=== PATIENT | male | born 1940 | race Caucasian/White ===

== ENCOUNTER 2021-11-03 12:11 | Outpatient (CLI) | payer MEDICARE, MEDICAID, SELFPAY ==
--- NOTE | 2021-11-03 12:28 | CT_ITS ---
WS: [id number] CT ABDOMEN PELVIS TECHNIQUE: Contrast-enhanced CT of the abdomen and pelvis with coronal and sagittal reformatted image s. CLINICAL INFORMATION: MALIGNANT MELANOMA OF BACK DLP: 1118.[address] scans at [facility] use at least one of these dose optimization techniques: automated e xposure control; mA and/or kV adjustment per patient size (includes targeted exams where dose is matc hed to clinical indication); or iterative reconstruction. FINDINGS: Slight atelectasis in the lung bases. Moderate esophageal hiatal hernia. Normal liver parenchymal enh ancement. Normal portal vein and splenic vein. Fatty atrophy of the pancreas. Adrenal glands are norm al. Normal renal parenchymal enhancement. No hydronephrosis. Both ureters are decompressed. Normal caliber abdominal aorta. Aortic calcification. No periaortic lymphadenopathy. Sigmoid divertic ulosis. No evidence of acute diverticulitis. Normal appendix in the RIGHT lower quadrant. No pelvic o r inguinal lymphadenopathy. Small fat-containing inguinal hernias bilaterally. Enlarged prostate with calcification measuring 3.8 x 4.8 cm. Correlation PSA. Disc osteophyte complex L3-L4 with impingement RIGHT subarticular recess and moderat e RIGHT L3-L4 foraminal narrowing. Mild central canal stenosis. Lumbar curve convex LEFT. CT/CT abdomen pelvis w con* [id number] IMPRESSION: 1. No evidence of metastatic disease in the abdomen or pelvis. 2. Moderate esophageal hiatal hernia. 3. No adenopathy in the abdomen or pelvis. No inguinal lymphadenopathy. 4. Sigmoid diverticulosis. No evidence of acute diverticulitis. 5. Enlarged prostate. Recommend correlation PSA.
[2021-11-03] MEDS: iohexol 300 mg/mL 100 mL Btl IV (13:48)
[2021-11-03 13:50] LABS: Blood Urea Nitrogen 12 mg/dL (8-23)
== END 2021-11-03 12:12 | disposition home or self-care (01) ==
LOC: RAD 12:12
PROVIDERS: Visit Provider Nurse Practitioner Family
DX: C43.59 Malignant melanoma of other part of trunk (principal); J98.11 Atelectasis; K44.9 Diaphragmatic hernia without obstruction or gangrene; I70.0 Atherosclerosis of aorta; K57.32 Diverticulitis of large intestine without perforation or abscess without bleeding; N40.0 Benign prostatic hyperplasia without lower urinary tract symptoms; M25.78 Osteophyte, vertebrae
CPT/HCPCS: 74177; 82565; 84520

== ENCOUNTER → 2021-11-10 11:23 | Outpatient (BNVA) | payer MEDICARE, MEDICAID, SELFPAY | PROVIDERS: Visit Provider Nurse Practitioner Family | DX: M79.605 Pain in left leg (principal); M17.12 Unilateral primary osteoarthritis, left knee | CPT/HCPCS: 73590 ==

== ENCOUNTER 2022-04-24 07:26 | Oncology outpatient (recurring) (ONCR) | payer MEDICARE, MEDICAID, SELFPAY | END 2022-05-02 23:59 | disposition home or self-care (01) | PROVIDERS: Visit Provider Internal Medicine Hematology & Oncology | DX: C43.59 Malignant melanoma of other part of trunk (principal); C77.3 Secondary and unspecified malignant neoplasm of axilla and upper limb lymph nodes; Z95.828 Presence of other vascular implants and grafts | CPT/HCPCS: 96523; 99204 ==

== ENCOUNTER 2022-05-29 15:29 | Oncology outpatient (recurring) (ONCR) | payer MEDICARE, MEDICAID, SELFPAY ==
[2022-05-07 10:37] VITALS: BP 164/95; PULSE 76; RESP 16; TEMP 36.5; O2SAT 93
[2022-05-07 10:58] LABS: Basophils % 0.6 %; Eosinophils # 0.1 10^3/uL (0.0-0.8); Eosinophils % 1.4 %; Hematocrit 44.8 % (42.0-52.0); Hemoglobin 14.7 g/dL (11.7-16.6); Lymphocytes # 1.3 10^3/uL (0.8-4.8); Lymphocytes % 19.8 %; Mean Corpuscular HGB Conc 32.8 g/dL (30.0-36.0); Mean Corpuscular Hemoglobin 29.9 pg (28.0-34.0); Mean Corpuscular Volume 91.2 fl (80-94); Mean Platelet Volume 10.3 fL (7.4-10.4); Monocytes # 0.6 10^3/uL (0.2-0.9); Monocytes % 9.5 %; Neutrophils # 4.38 10^3/uL (1.8-7.7); Neutrophils % 68.2 %; Nucleated Red Blood Cells % 0 %; Platelet Count 222 10^3/cmm (130-400); Red Blood Count 4.91 10^6/uL (4.1-5.3); Red Cell Distribution Width 12.8 % (12.1-15.1); White Blood Count 6.4 10^3/uL (4.0-10.0)
[2022-05-07 11:28] LABS: Alanine Aminotransferase 10 U/L (0-41); Albumin Level 3.9 g/dL (3.5-5.2); Alkaline Phosphatase 76 U/L (40-130); Anion Gap 10.6 (5-19); Aspartate Amino Transferase 16 U/L (0-40); Blood Urea Nitrogen 15 mg/dL (8-23); Calcium 9.3 mg/dL (8.5-10.5); Carbon Dioxide 30 mmol/L (22-29); Chloride 100 mmol/L (98-107); Globulin 3.3 g/dL (1.3-4.6); Glucose 119 mg/dL (65-115); Osmolality Calculated 286 mOsm/kg (285-295); Potassium 3.6 mmol/L (3.5-5.1); Sodium 137 mmol/L (136-145); Total Bilirubin 0.4 mg/dL (0.15-1.2); Total Protein 7.2 g/dL (6.6-8.7)
[2022-05-07 11:29] LABS: Thyroid Stimulating Hormone 1.17 uIU/mL (0.27-4.20)
[2022-05-07] MEDS: sodium chloride 0.9% 250 ML 75 ML IV (11:56)
[2022-05-07] MEDS: nivolumab 240 MG in sodium chloride 0.9% 250 ML 548 MG IV (11:58)
[2022-05-07 12:40] VITALS: BP 153/93; PULSE 71; RESP 16; TEMP 36.6; O2SAT 95
[2022-05-14 08:30] LABS: Basophils # 0.1 10^3/uL (0.0-0.1); Basophils % 0.8 %; Eosinophils # 0.2 10^3/uL (0.0-0.8); Eosinophils % 2.5 %; Hematocrit 44.5 % (42.0-52.0); Hemoglobin 14.8 g/dL (11.7-16.6); Lymphocytes # 1.3 10^3/uL (0.8-4.8); Lymphocytes % 19.3 %; Mean Corpuscular HGB Conc 33.3 g/dL (30.0-36.0); Mean Corpuscular Hemoglobin 30.5 pg (28.0-34.0); Mean Corpuscular Volume 91.6 fl (80-94); Mean Platelet Volume 10.4 fL (7.4-10.4); Monocytes # 0.6 10^3/uL (0.2-0.9); Monocytes % 9.4 %; Neutrophils # 4.38 10^3/uL (1.8-7.7); Neutrophils % 67.8 %; Nucleated Red Blood Cells % 0 %; Platelet Count 203 10^3/cmm (130-400); Red Blood Count 4.86 10^6/uL (4.1-5.3); Red Cell Distribution Width 12.8 % (12.1-15.1); White Blood Count 6.5 10^3/uL (4.0-10.0)
[2022-05-14 09:23] LABS: Alanine Aminotransferase 9 U/L (0-41); Albumin Level 4.3 g/dL (3.5-5.2); Alkaline Phosphatase 75 U/L (40-130); Anion Gap 13.3 (5-19); Aspartate Amino Transferase 17 U/L (0-40); Blood Urea Nitrogen 13 mg/dL (8-23); Calcium 9.3 mg/dL (8.5-10.5); Carbon Dioxide 29 mmol/L (22-29); Chloride 98 mmol/L (98-107); Globulin 2.7 g/dL (1.3-4.6); Glucose 137 mg/dL (65-115); Osmolality Calculated 286 mOsm/kg (285-295); Potassium 3.3 mmol/L (3.5-5.1); Sodium 137 mmol/L (136-145); Thyroid Stimulating Hormone 2.44 uIU/mL (0.27-4.20); Total Bilirubin 0.5 mg/dL (0.15-1.2)
[2022-05-14 11:12] LABS: Magnesium 1.9 mg/dL (1.7-2.3)
[2022-05-21 08:31] LABS: Basophils # 0.1 10^3/uL (0.0-0.1); Basophils % 1.1 %; Eosinophils # 0.2 10^3/uL (0.0-0.8); Eosinophils % 3.4 %; Hematocrit 43.6 % (42.0-52.0); Hemoglobin 14.3 g/dL (11.7-16.6); Lymphocytes # 1.3 10^3/uL (0.8-4.8); Mean Corpuscular HGB Conc 32.8 g/dL (30.0-36.0); Mean Corpuscular Hemoglobin 30.2 pg (28.0-34.0); Mean Platelet Volume 10.5 fL (7.4-10.4); Monocytes # 0.5 10^3/uL (0.2-0.9); Monocytes % 8.5 %; Neutrophils # 3.51 10^3/uL (1.8-7.7); Neutrophils % 63.8 %; Nucleated Red Blood Cells % 0 %; Platelet Count 191 10^3/cmm (130-400); Red Blood Count 4.74 10^6/uL (4.1-5.3); Red Cell Distribution Width 12.8 % (12.1-15.1); White Blood Count 5.5 10^3/uL (4.0-10.0)
[2022-05-21 09:12] LABS: Alanine Aminotransferase 9 U/L (0-41); Albumin Level 3.8 g/dL (3.5-5.2); Alkaline Phosphatase 76 U/L (40-130); Anion Gap 12.5 (5-19); Aspartate Amino Transferase 18 U/L (0-40); Blood Urea Nitrogen 14 mg/dL (8-23); Calcium 8.9 mg/dL (8.5-10.5); Carbon Dioxide 30 mmol/L (22-29); Chloride 105 mmol/L (98-107); Glucose 153 mg/dL (65-115); Osmolality Calculated 302 mOsm/kg (285-295); Potassium 3.5 mmol/L (3.5-5.1); Sodium 144 mmol/L (136-145); Thyroid Stimulating Hormone 1.96 uIU/mL (0.27-4.20); Total Bilirubin 0.4 mg/dL (0.15-1.2); Total Protein 6.8 g/dL (6.6-8.7)
[2022-05-21] MEDS: nivolumab 240 MG in sodium chloride 0.9% 250 ML 548 MG IV (10:26)
[2022-05-21 11:12] VITALS: BP 159/88; PULSE 70; RESP 16; TEMP 36.3; O2SAT 93
--- NOTE | 2022-05-29 17:11 | N.ONRAD NP_ITS ---
Radiation Oncology New Patient Visit Patient: Randell Paul MR#: [id number] : 1940> Age: 81> Sex: Male> Dictated by: Dr. Jim Bose Date of Service: 05/29/2022 Referring Physician(s) : Andrei Hurley MD Diagnosis: Skin, back, melanoma, stage [id number] Radiotherapy to date: Summary > No prior radiation therapy. Chief Complaint / History of Present Illness: Mr. Paul is an 81-year-old man who was noted to have an enlarging lesion on his back in mid October 2021. An excisional biopsy was performed 10/27/2021 and the tissue returned showing malignant melanoma with peripheral and deep margin involvement and ulceration at least 5 mm in depth. The patient's PET/CT did not show activity at the primary site but did indicate left axillary lymph node involvement. No distant metastases seen. A CT of the head was performed instead of an MR because of the presence of a pacemaker. The CT did not show metastatic disease. Mr. Paul was referred to Dr. Bullard who performed a wide local excision of the primary site as well as an axillary dissection on 02/06/2022.. He had no residual disease at the primary site but had 1 of 19 lymph nodes involved with melanoma. The lymph node measured 5 cm but no extranodal extension was observed, either macroscopically or microscopically. Shortly after the wide local excision and axillary dissection, Dr. Bullard placed a port. Mr. Paul did not return to Dr. Bundy to start systemic therapy. He was then referred to Dr. Hurley here in [place]. He has been started on nivolumab every 2 weeks for 7 months. Because of the size of the axillary metastasis, it has been requested that he be evaluated for postoperative radiation. Current Medications: Prochlorperazine and lorazepam Allergies: NKA Medical History: No history of collagen vascular disease. No previous radiation therapy. He has a pacemaker. It was placed in 2013. I do not know the details behind its placement. The patient emphasized that he would not have it removed or removed. Surgical History: See HPI. Also has a history of an inguinal hernia repair and placement of pacemaker. Family History: He is adopted without knowledge of family history. Social History: Never smoked. Never used alcoholic beverages. He has a sister who helps him assess medical recommendations. Current Complaints / Review of Systems: . No head neck, pulmonary, gastrointestinal, or cardiovascular complaints Vital Signs: Performed on 05/29/2022 3:38 PM BMI - 29.188 kg/m2 (high), Height - 65 in, Weight - 175.4 lbs, Temperature - 97.5 f, Pulse - 89 /min, Respiration - 18 /min, O2 Sat - 96 %, Pain - 0, Fatigue - 0 and BP - 156/ 99 mm(hg)(high). Physical Exam: Alert, oriented, no acute distress. No cervical, supraclavicular, axillary, or inguinal lymphadenopathy. The site of his axillary dissection is well-healed. No surface skin lesions or subcutaneous lesions to suggest recurrence. On his back, in the upper lumbar area he has a horizontal scar in the area where he had the resection and wide local excision performed. There are no surface satellite lesions. No subcutaneous masses to suggest local recurrence. Examination of the anterior chest wall reveals a port over the right upper chest and a pacemaker over the left upper chest near the axilla. Lungs are clear to percussion. On auscultation no rales, rhonchi, or wheezes. Heart regular rhythm. No murmur or gallop noted. Abdomen - no distention. No organomegaly or mass or tenderness. Musculoskeletal-normal gait. No bone tenderness. 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 The patient has started adjuvant nivolumab. Based on the size of the axillary metastasis (greater than 4 cm), adjuvant radiation should be considered. There is not much data available on using external beam radiation concomitantly with nivolumab. The [facility] has an article that has been accepted for publication and is available in abstract form that is related to the use of nivolumab concomitantly with external beam radiation of the head neck. The radiation dose is 70 [place] and either weekly or every 3 weekly cisplatin is utilized. According to the abstract, no unusual side effects or complications develop from using the nivolumab, external beam radiation, and cisplatin concomitantly. I discussed that with Dr. Hurley. To give further safety, he advised stopping the nivolumab during radiation. Skipping 1 course would give us time for a 4-week course of radiation. I discussed all of the above issues with Mr. Paul. I discussed a 4-week course of radiation, but told him that Dr. Marrero may prefer a different treatment regimen. I discussed the logistics of treatment and that transportation will need to be arranged. I discussed side effects and complications, particularly the risk of lymphedema, arm pain, and arm weakness. I then discussed the fact that his pacemaker is directly adjacent to the area that will need radiation. I told him there is a considerable chance that the pacemaker will need to be moved. He may have interpreted that as meaning the pacemaker would be removed permanently. He definitely refuses that, and I am not sure he will agree to have it moved. I do not have imaging that shows the placement of the pacemaker. I suggested to the staff that when he returns for nivolumab next week that we could consider getting a chest x-ray. They will discuss that with Dr. Marrero. Plan: Discussed the pacemaker issue with Dr. Hurley and await Dr. Marrero's input when he returns from vacation. Signed by: 05/29/2022 5:11:08 PM <<Signature on File>> Time spent with patient: CPT Code: CPT Code:
== END 2022-06-02 23:59 | disposition home or self-care (01) ==
PROVIDERS: Nurse Practitioner; PCP Nurse Practitioner Family; Visit Provider Internal Medicine Hematology & Oncology
DX: C43.59 Malignant melanoma of other part of trunk (principal); C77.3 Secondary and unspecified malignant neoplasm of axilla and upper limb lymph nodes; Z95.0 Presence of cardiac pacemaker; Z79.899 Other long term (current) drug therapy
CPT/HCPCS: 36591; 80053; 83735; 84443; 85025; 96413; 99205; 99214; J7050; J9299

== ENCOUNTER 2022-06-19 08:00 | Oncology outpatient (recurring) (ONCR) | payer MEDICARE, MEDICAID, SELFPAY ==
[2022-06-05 10:36] LABS: Basophils # 0.1 10^3/uL (0.0-0.1); Basophils % 0.9 %; Eosinophils # 0.2 10^3/uL (0.0-0.8); Eosinophils % 2.7 %; Hematocrit 44.2 % (42.0-52.0); Hemoglobin 14.4 g/dL (11.7-16.6); Lymphocytes # 1.3 10^3/uL (0.8-4.8); Lymphocytes % 22.7 %; Mean Corpuscular HGB Conc 32.6 g/dL (30.0-36.0); Mean Corpuscular Hemoglobin 29.8 pg (28.0-34.0); Mean Corpuscular Volume 91.5 fl (80-94); Mean Platelet Volume 11.1 fL (7.4-10.4); Monocytes # 0.6 10^3/uL (0.2-0.9); Monocytes % 10.8 %; Neutrophils # 3.66 10^3/uL (1.8-7.7); Neutrophils % 62.6 %; Nucleated Red Blood Cells % 0 %; Platelet Count 193 10^3/cmm (130-400); Red Blood Count 4.83 10^6/uL (4.1-5.3); Red Cell Distribution Width 12.8 % (12.1-15.1); White Blood Count 5.9 10^3/uL (4.0-10.0)
[2022-06-05 10:53] LABS: Alanine Aminotransferase 8 U/L (0-41); Albumin Level 3.9 g/dL (3.5-5.2); Alkaline Phosphatase 73 U/L (40-130); Anion Gap 12.8 (5-19); Aspartate Amino Transferase 15 U/L (0-40); Blood Urea Nitrogen 16 mg/dL (8-23); Calcium 9.4 mg/dL (8.5-10.5); Carbon Dioxide 28 mmol/L (22-29); Chloride 105 mmol/L (98-107); Globulin 3.2 g/dL (1.3-4.6); Glucose 109 mg/dL (65-115); Osmolality Calculated 296 mOsm/kg (285-295); Potassium 3.8 mmol/L (3.5-5.1); Sodium 142 mmol/L (136-145); Total Bilirubin 0.4 mg/dL (0.15-1.2); Total Protein 7.1 g/dL (6.6-8.7)
[2022-06-05] MEDS: nivolumab 240 MG in sodium chloride 0.9% 250 ML 548 MG IV (12:09)
[2022-06-05 12:41] VITALS: BP 153/94; PULSE 72; RESP 16; TEMP 36.1; O2SAT 94
[2022-06-19 08:10] VITALS: BMI 29.1
[2022-06-19 08:25] LABS: Basophils # 0.1 10^3/uL (0.0-0.1); Basophils % 0.8 %; Eosinophils # 0.3 10^3/uL (0.0-0.8); Eosinophils % 4.1 %; Hematocrit 44.5 % (42.0-52.0); Hemoglobin 14.5 g/dL (11.7-16.6); Lymphocytes # 1.5 10^3/uL (0.8-4.8); Lymphocytes % 23.2 %; Mean Corpuscular HGB Conc 32.6 g/dL (30.0-36.0); Mean Corpuscular Volume 91.9 fl (80-94); Mean Platelet Volume 10.6 fL (7.4-10.4); Monocytes # 0.7 10^3/uL (0.2-0.9); Monocytes % 10.3 %; Neutrophils # 3.91 10^3/uL (1.8-7.7); Neutrophils % 61.3 %; Nucleated Red Blood Cells % 0 %; Platelet Count 185 10^3/cmm (130-400); Red Blood Count 4.84 10^6/uL (4.1-5.3); Red Cell Distribution Width 12.8 % (12.1-15.1); White Blood Count 6.4 10^3/uL (4.0-10.0)
[2022-06-19 08:48] LABS: Alanine Aminotransferase 9 U/L (0-41); Albumin Level 4.1 g/dL (3.5-5.2); Alkaline Phosphatase 72 U/L (40-130); Anion Gap 12.8 (5-19); Aspartate Amino Transferase 16 U/L (0-40); Blood Urea Nitrogen 20 mg/dL (8-23); Calcium 8.8 mg/dL (8.5-10.5); Carbon Dioxide 29 mmol/L (22-29); Chloride 105 mmol/L (98-107); Globulin 2.8 g/dL (1.3-4.6); Glucose 144 mg/dL (65-115); Osmolality Calculated 301 mOsm/kg (285-295); Potassium 3.8 mmol/L (3.5-5.1); Sodium 143 mmol/L (136-145); Thyroid Stimulating Hormone 1.19 uIU/mL (0.27-4.20); Total Bilirubin 0.2 mg/dL (0.15-1.2); Total Protein 6.9 g/dL (6.6-8.7)
[2022-06-19] MEDS: sodium chloride 0.9% 250 ML 75 ML IV (10:02)
[2022-06-19] MEDS: nivolumab 240 MG in sodium chloride 0.9% 250 ML 548 MG IV (10:08)
[2022-06-19 11:02] VITALS: BP 149/85; PULSE 70; RESP 18; TEMP 36.6; O2SAT 96
== END 2022-07-03 23:59 | disposition home or self-care (01) ==
PROVIDERS: PCP Nurse Practitioner Family; Visit Provider Internal Medicine Hematology & Oncology
DX: Z51.12 Encounter for antineoplastic immunotherapy (principal); C43.59 Malignant melanoma of other part of trunk; C77.1 Secondary and unspecified malignant neoplasm of intrathoracic lymph nodes; Z79.899 Other long term (current) drug therapy
CPT/HCPCS: 80053; 84443; 85025; 96413; 99214; 99215; J7050; J9299

== ENCOUNTER 2022-07-23 10:30 | Oncology outpatient (recurring) (ONCR) | payer MEDICARE, MEDICAID, SELFPAY ==
[2022-07-09] MEDS: nivolumab 240 MG in sodium chloride 0.9% 250 ML 548 MG IV (11:28)
[2022-07-09 12:10] VITALS: BP 145/87; PULSE 70; RESP 16; TEMP 36.2; O2SAT 96
== END 2022-07-31 23:59 | disposition home or self-care (01) ==
PROVIDERS: PCP Nurse Practitioner Family; Visit Provider Internal Medicine Hematology & Oncology
DX: C43.59 Malignant melanoma of other part of trunk
CPT/HCPCS: 80053; 84443; 85025; 99214; J7050; J9299

== ENCOUNTER 2022-08-20 09:30 | Oncology outpatient (recurring) (ONCR) | payer MEDICARE, MEDICAID, SELFPAY ==
[2022-08-06 09:23] LABS: Basophils # 0.1 10^3/uL (0.0-0.1); Basophils % 0.8 %; Eosinophils # 0.2 10^3/uL (0.0-0.8); Eosinophils % 3.4 %; Hematocrit 45.4 % (42.0-52.0); Hemoglobin 14.7 g/dL (11.7-16.6); Lymphocytes # 1.3 10^3/uL (0.8-4.8); Mean Corpuscular HGB Conc 32.4 g/dL (30.0-36.0); Mean Corpuscular Hemoglobin 29.3 pg (28.0-34.0); Mean Corpuscular Volume 90.6 fl (80-94); Mean Platelet Volume 10.3 fL (7.4-10.4); Monocytes # 0.5 10^3/uL (0.2-0.9); Monocytes % 8.6 %; Neutrophils # 4.05 10^3/uL (1.8-7.7); Neutrophils % 65.9 %; Nucleated Red Blood Cells % 0 %; Platelet Count 217 10^3/cmm (130-400); Red Blood Count 5.01 10^6/uL (4.1-5.3); Red Cell Distribution Width 12.2 % (12.1-15.1); White Blood Count 6.2 10^3/uL (4.0-10.0)
[2022-08-06 09:50] LABS: Alanine Aminotransferase 8 U/L (0-41); Albumin Level 3.8 g/dL (3.5-5.2); Alkaline Phosphatase 72 U/L (40-130); Anion Gap 13.9 (5-19); Aspartate Amino Transferase 16 U/L (0-40); Blood Urea Nitrogen 18 mg/dL (8-23); Calcium 9.4 mg/dL (8.5-10.5); Carbon Dioxide 29 mmol/L (22-29); Chloride 104 mmol/L (98-107); Globulin 3.1 g/dL (1.3-4.6); Glucose 132 mg/dL (65-115); Osmolality Calculated 300 mOsm/kg (285-295); Potassium 3.9 mmol/L (3.5-5.1); Sodium 143 mmol/L (136-145); Thyroid Stimulating Hormone 0.08 uIU/mL (0.27-4.20); Total Bilirubin 0.5 mg/dL (0.15-1.2); Total Protein 6.9 g/dL (6.6-8.7)
[2022-08-06] MEDS: nivolumab 240 MG in sodium chloride 0.9% 250 ML 548 MG IV (11:29)
[2022-08-06 12:15] VITALS: BP 145/84; PULSE 71; RESP 16; TEMP 36.6; O2SAT 93
[2022-08-20 09:28] LABS: Basophils # 0.1 10^3/uL (0.0-0.1); Basophils % 1.1 %; Eosinophils # 0.2 10^3/uL (0.0-0.8); Eosinophils % 4.9 %; Hematocrit 45.7 % (42.0-52.0); Hemoglobin 14.8 g/dL (11.7-16.6); Lymphocytes # 1.1 10^3/uL (0.8-4.8); Lymphocytes % 22.4 %; Mean Corpuscular HGB Conc 32.4 g/dL (30.0-36.0); Mean Corpuscular Hemoglobin 29.3 pg (28.0-34.0); Mean Corpuscular Volume 90.5 fl (80-94); Monocytes # 0.5 10^3/uL (0.2-0.9); Monocytes % 11.2 %; Neutrophils # 2.86 10^3/uL (1.8-7.7); Neutrophils % 60.2 %; Nucleated Red Blood Cells % 0 %; Platelet Count 206 10^3/cmm (130-400); Red Blood Count 5.05 10^6/uL (4.1-5.3); Red Cell Distribution Width 12.6 % (12.1-15.1); White Blood Count 4.7 10^3/uL (4.0-10.0)
[2022-08-20 09:53] LABS: Alanine Aminotransferase 9 U/L (0-41); Albumin Level 3.8 g/dL (3.5-5.2); Alkaline Phosphatase 61 U/L (40-130); Anion Gap 10.7 (5-19); Aspartate Amino Transferase 20 U/L (0-40); Blood Urea Nitrogen 13 mg/dL (8-23); Calcium 8.9 mg/dL (8.5-10.5); Carbon Dioxide 30 mmol/L (22-29); Chloride 104 mmol/L (98-107); Globulin 3.1 g/dL (1.3-4.6); Glucose 117 mg/dL (65-115); Osmolality Calculated 293 mOsm/kg (285-295); Potassium 3.7 mmol/L (3.5-5.1); Sodium 141 mmol/L (136-145); Thyroid Stimulating Hormone 5.77 uIU/mL (0.27-4.20); Total Bilirubin 0.6 mg/dL (0.15-1.2); Total Protein 6.9 g/dL (6.6-8.7)
[2022-08-20] MEDS: nivolumab 240 MG in sodium chloride 0.9% 250 ML 548 MG IV (11:30)
[2022-08-20 11:50] LABS: Thyroid Stimulating Hormone 3.35 uIU/mL (0.27-4.20)
[2022-08-20 12:16] VITALS: BP 159/90; PULSE 74; RESP 16; TEMP 36.1; O2SAT 97
== END 2022-08-31 23:59 | disposition home or self-care (01) ==
PROVIDERS: PCP Nurse Practitioner Family; Visit Provider Internal Medicine Hematology & Oncology
DX: Z51.12 Encounter for antineoplastic immunotherapy (principal); C43.59 Malignant melanoma of other part of trunk; C77.3 Secondary and unspecified malignant neoplasm of axilla and upper limb lymph nodes; Z79.899 Other long term (current) drug therapy; Z95.0 Presence of cardiac pacemaker
CPT/HCPCS: 80053; 84443; 85025; 96413; 99214; J7050; J9299

== ENCOUNTER 2022-09-03 08:48 | Oncology outpatient (recurring) (ONCR) | payer MEDICARE, MEDICAID, SELFPAY ==
[2022-09-03 08:57] VITALS: BP 173/92; PULSE 77; RESP 16; TEMP 36; O2SAT 93
[2022-09-03 09:20] LABS: Basophils # 0.1 10^3/uL (0.0-0.1); Basophils % 1.1 %; Eosinophils # 0.2 10^3/uL (0.0-0.8); Eosinophils % 3.6 %; Hemoglobin 14.8 g/dL (11.7-16.6); Lymphocytes # 1.1 10^3/uL (0.8-4.8); Lymphocytes % 21.7 %; Mean Corpuscular HGB Conc 32.2 g/dL (30.0-36.0); Mean Corpuscular Hemoglobin 29.5 pg (28.0-34.0); Mean Corpuscular Volume 91.8 fl (80-94); Mean Platelet Volume 10.9 fL (7.4-10.4); Monocytes # 0.5 10^3/uL (0.2-0.9); Monocytes % 8.9 %; Neutrophils # 3.38 10^3/uL (1.8-7.7); Neutrophils % 64.3 %; Nucleated Red Blood Cells % 0 %; Platelet Count 164 10^3/cmm (130-400); Red Blood Count 5.01 10^6/uL (4.1-5.3); Red Cell Distribution Width 13.1 % (12.1-15.1); White Blood Count 5.3 10^3/uL (4.0-10.0)
[2022-09-03 09:45] LABS: Alanine Aminotransferase 9 U/L (0-41); Alkaline Phosphatase 68 U/L (40-130); Anion Gap 11.5 (5-19); Aspartate Amino Transferase 19 U/L (0-40); Blood Urea Nitrogen 15 mg/dL (8-23); Calcium 8.5 mg/dL (8.5-10.5); Carbon Dioxide 29 mmol/L (22-29); Chloride 104 mmol/L (98-107); Globulin 2.8 g/dL (1.3-4.6); Glucose 115 mg/dL (65-115); Osmolality Calculated 294 mOsm/kg (285-295); Potassium 3.5 mmol/L (3.5-5.1); Sodium 141 mmol/L (136-145); Thyroid Stimulating Hormone 19.64 uIU/mL (0.27-4.20); Total Bilirubin 0.4 mg/dL (0.15-1.2); Total Protein 6.8 g/dL (6.6-8.7)
[2022-09-03] MEDS: nivolumab 240 MG in sodium chloride 0.9% 250 ML 548 MG IV (11:57)
[2022-09-03 12:34] VITALS: BP 169/99; PULSE 77; RESP 16; TEMP 36; O2SAT 96
== END 2022-09-30 23:59 | disposition home or self-care (01) ==
PROVIDERS: PCP Nurse Practitioner Family; Visit Provider Internal Medicine Hematology & Oncology
DX: Z51.12 Encounter for antineoplastic immunotherapy (principal); C43.59 Malignant melanoma of other part of trunk; C77.3 Secondary and unspecified malignant neoplasm of axilla and upper limb lymph nodes; Z79.899 Other long term (current) drug therapy; Z95.0 Presence of cardiac pacemaker; E03.9 Hypothyroidism, unspecified
CPT/HCPCS: 80053; 84443; 85025; 96413; 99214; J7050; J9299

== ENCOUNTER → 2022-09-04 10:34 | Outpatient (BNVA) | payer MEDICARE, MEDICAID, SELFPAY | PROVIDERS: PCP Nurse Practitioner Family; Visit Provider Internal Medicine Cardiovascular Disease | DX: Z95.0 Presence of cardiac pacemaker (principal); I48.91 Unspecified atrial fibrillation; I10 Essential (primary) hypertension; C43.9 Malignant melanoma of skin, unspecified; E87.6 Hypokalemia | CPT/HCPCS: 99204 ==

== ENCOUNTER 2022-10-04 08:49 | Oncology outpatient (recurring) (ONCR) | payer MEDICARE, MEDICAID, SELFPAY ==
[2022-10-04 09:00] VITALS: BP 150/90; PULSE 70; RESP 18; TEMP 37.1; O2SAT 95
[2022-10-04 09:17] LABS: Basophils # 0.1 10^3/uL (0.0-0.1); Eosinophils # 0.3 10^3/uL (0.0-0.8); Eosinophils % 4.1 %; Hematocrit 44.2 % (42.0-52.0); Hemoglobin 14.3 g/dL (11.7-16.6); Lymphocytes # 1.2 10^3/uL (0.8-4.8); Lymphocytes % 20.4 %; Mean Corpuscular HGB Conc 32.4 g/dL (30.0-36.0); Mean Corpuscular Hemoglobin 30.1 pg (28.0-34.0); Mean Corpuscular Volume 93.1 fl (80-94); Mean Platelet Volume 10.8 fL (7.4-10.4); Monocytes # 0.6 10^3/uL (0.2-0.9); Monocytes % 9.2 %; Neutrophils # 3.96 10^3/uL (1.8-7.7); Neutrophils % 65.1 %; Nucleated Red Blood Cells % 0 %; Platelet Count 190 10^3/cmm (130-400); Red Blood Count 4.75 10^6/uL (4.1-5.3); Red Cell Distribution Width 13.2 % (12.1-15.1); White Blood Count 6.1 10^3/uL (4.0-10.0)
[2022-10-04 09:55] LABS: Alanine Aminotransferase 10 U/L (0-41); Albumin Level 4.3 g/dL (3.5-5.2); Alkaline Phosphatase 68 U/L (40-130); Anion Gap 10.9 (5-19); Aspartate Amino Transferase 19 U/L (0-40); Blood Urea Nitrogen 20 mg/dL (8-23); Calcium 8.8 mg/dL (8.5-10.5); Carbon Dioxide 29 mmol/L (22-29); Chloride 107 mmol/L (98-107); Globulin 2.7 g/dL (1.3-4.6); Glucose 105 mg/dL (65-115); Osmolality Calculated 299 mOsm/kg (285-295); Potassium 3.9 mmol/L (3.5-5.1); Sodium 143 mmol/L (136-145); Thyroid Stimulating Hormone 23.16 uIU/mL (0.27-4.20); Total Bilirubin 0.4 mg/dL (0.15-1.2)
[2022-10-04 10:11] LABS: Immunoglobulin IGG 1124 mg/dL (700-1600)
[2022-10-04] MEDS: sodium chloride 0.9% 250 ML 75 ML IV (11:30)
[2022-10-04 12:06] LABS: Hepatitis A Antibody IgM Non-Reactive (Nonreactive); Hepatitis B Core AB, Total Non-Reactive (Nonreactive); Hepatitis B Surface AB 3.5 (11.5-1000); Hepatitis B Surface Antigen Non-Reactive (Nonreactive); Hepatitis C Virus Antibody Non-Reactive (Nonreactive)
[2022-10-04] MEDS: nivolumab 480 MG in sodium chloride 0.9% 250 ML 596 MG IV (12:07)
[2022-10-04 12:54] VITALS: BP 144/81; PULSE 75; RESP 18; TEMP 36.4; O2SAT 95
== END 2022-10-04 23:59 | disposition home or self-care (01) ==
PROVIDERS: PCP Nurse Practitioner Family; Visit Provider Internal Medicine Hematology & Oncology
DX: Z51.12 Encounter for antineoplastic immunotherapy (principal); C43.59 Malignant melanoma of other part of trunk; C77.3 Secondary and unspecified malignant neoplasm of axilla and upper limb lymph nodes; E03.9 Hypothyroidism, unspecified; Z79.899 Other long term (current) drug therapy; Z95.0 Presence of cardiac pacemaker
CPT/HCPCS: 80053; 82784; 84443; 85025; 86705; 86706; 86709; 86803; 87340; 96375; 96413; 99214; J1642; J7050; J9299

== ENCOUNTER → 2022-10-18 13:21 | Outpatient (BNVA) | payer MEDICARE, MEDICAID, SELFPAY | PROVIDERS: PCP Nurse Practitioner Family; Visit Provider Internal Medicine Cardiovascular Disease | DX: I48.91 Unspecified atrial fibrillation (principal); I10 Essential (primary) hypertension; Z95.0 Presence of cardiac pacemaker; E03.9 Hypothyroidism, unspecified | CPT/HCPCS: 99214 ==

== ENCOUNTER 2022-11-05 08:33 | Oncology outpatient (recurring) (ONCR) | payer MEDICARE, MEDICAID, SELFPAY ==
[2022-11-05 09:03] VITALS: BP 162/93; PULSE 72; RESP 18; TEMP 36.6; O2SAT 90
[2022-11-05 09:14] LABS: Basophils % 0.6 %; Eosinophils # 0.4 10^3/uL (0.0-0.8); Eosinophils % 6.6 %; Hematocrit 41.4 % (42.0-52.0); Hemoglobin 13.2 g/dL (11.7-16.6); Lymphocytes # 1.4 10^3/uL (0.8-4.8); Lymphocytes % 22.7 %; Mean Corpuscular HGB Conc 31.9 g/dL (30.0-36.0); Mean Corpuscular Hemoglobin 30.3 pg (28.0-34.0); Mean Corpuscular Volume 95.2 fl (80-94); Mean Platelet Volume 10.8 fL (7.4-10.4); Monocytes # 0.5 10^3/uL (0.2-0.9); Monocytes % 8.7 %; Neutrophils # 3.78 10^3/uL (1.8-7.7); Neutrophils % 61.2 %; Nucleated Red Blood Cells % 0 %; Platelet Count 160 10^3/cmm (130-400); Red Blood Count 4.35 10^6/uL (4.1-5.3); Red Cell Distribution Width 13.2 % (12.1-15.1); White Blood Count 6.2 10^3/uL (4.0-10.0)
[2022-11-05 09:50] LABS: Alanine Aminotransferase 8 U/L (0-41); Albumin Level 4.1 g/dL (3.5-5.2); Alkaline Phosphatase 68 U/L (40-130); Anion Gap 11.8 (5-19); Aspartate Amino Transferase 18 U/L (0-40); Blood Urea Nitrogen 19 mg/dL (8-23); Calcium 8.4 mg/dL (8.5-10.5); Carbon Dioxide 30 mmol/L (22-29); Chloride 102 mmol/L (98-107); Globulin 2.5 g/dL (1.3-4.6); Glucose 124 mg/dL (65-115); Osmolality Calculated 294 mOsm/kg (285-295); Potassium 3.8 mmol/L (3.5-5.1); Sodium 140 mmol/L (136-145); Thyroid Stimulating Hormone 21.71 uIU/mL (0.27-4.20); Total Bilirubin 0.5 mg/dL (0.15-1.2); Total Protein 6.6 g/dL (6.6-8.7)
[2022-11-05] MEDS: nivolumab 480 MG in sodium chloride 0.9% 250 ML 596 MG IV (11:15)
[2022-11-05 12:02] VITALS: BP 136/87; PULSE 63; RESP 16; TEMP 36; O2SAT 99
== END 2022-11-05 23:59 | disposition home or self-care (01) ==
PROVIDERS: Nurse Practitioner Family; PCP Nurse Practitioner Family; Visit Provider Internal Medicine Hematology & Oncology
DX: Z51.12 Encounter for antineoplastic immunotherapy (principal); C43.59 Malignant melanoma of other part of trunk; C77.3 Secondary and unspecified malignant neoplasm of axilla and upper limb lymph nodes; E03.2 Hypothyroidism due to medicaments and other exogenous substances; Z79.899 Other long term (current) drug therapy; Z95.0 Presence of cardiac pacemaker; T45.1X5A Adverse effect of antineoplastic and immunosuppressive drugs, initial encounter
CPT/HCPCS: 80053; 84443; 85025; 96375; 96413; 99214; J1642; J7050; J9299

== ENCOUNTER 2022-12-03 08:24 | Oncology outpatient (recurring) (ONCR) | payer MEDICARE, MEDICAID, SELFPAY ==
[2022-12-03 08:42] VITALS: BP 163/79; PULSE 62; RESP 18; TEMP 36.6; O2SAT 93
[2022-12-03 08:53] LABS: Basophils # 0.1 10^3/uL (0.0-0.1); Basophils % 1.1 %; Eosinophils # 0.6 10^3/uL (0.0-0.8); Eosinophils % 9.8 %; Hematocrit 42.5 % (42.0-52.0); Hemoglobin 13.6 g/dL (11.7-16.6); Lymphocytes # 1.6 10^3/uL (0.8-4.8); Lymphocytes % 25.8 %; Mean Corpuscular Hemoglobin 30.8 pg (28.0-34.0); Mean Corpuscular Volume 96.2 fl (80-94); Mean Platelet Volume 10.8 fL (7.4-10.4); Monocytes # 0.4 10^3/uL (0.2-0.9); Monocytes % 6.7 %; Neutrophils # 3.51 10^3/uL (1.8-7.7); Neutrophils % 56.3 %; Nucleated Red Blood Cells % 0 %; Platelet Count 170 10^3/cmm (130-400); Red Blood Count 4.42 10^6/uL (4.1-5.3); Red Cell Distribution Width 13.4 % (12.1-15.1); White Blood Count 6.2 10^3/uL (4.0-10.0)
[2022-12-03 09:20] LABS: Alanine Aminotransferase 13 U/L (0-41); Albumin Level 4.3 g/dL (3.5-5.2); Alkaline Phosphatase 68 U/L (40-130); Anion Gap 9.3 (5-19); Aspartate Amino Transferase 26 U/L (0-40); Blood Urea Nitrogen 15 mg/dL (8-23); Calcium 9.6 mg/dL (8.5-10.5); Carbon Dioxide 30 mmol/L (22-29); Chloride 105 mmol/L (98-107); Globulin 2.7 g/dL (1.3-4.6); Glucose 103 mg/dL (65-115); Osmolality Calculated 291 mOsm/kg (285-295); Potassium 4.3 mmol/L (3.5-5.1); Sodium 140 mmol/L (136-145); Thyroid Stimulating Hormone 58.22 uIU/mL (0.27-4.20); Total Bilirubin 0.3 mg/dL (0.15-1.2)
[2022-12-03] MEDS: nivolumab 480 MG in sodium chloride 0.9% 250 ML 596 MG IV (10:47)
[2022-12-03 11:36] VITALS: BP 155/85; PULSE 63; RESP 18; TEMP 36.4; O2SAT 95
== END 2022-12-03 23:59 | disposition home or self-care (01) ==
PROVIDERS: PCP Nurse Practitioner Family; Visit Provider Internal Medicine Hematology & Oncology
DX: Z51.12 Encounter for antineoplastic immunotherapy (principal); C43.59 Malignant melanoma of other part of trunk; C77.3 Secondary and unspecified malignant neoplasm of axilla and upper limb lymph nodes; E03.9 Hypothyroidism, unspecified; Z79.899 Other long term (current) drug therapy; Z95.0 Presence of cardiac pacemaker
CPT/HCPCS: 80053; 84443; 85025; 96413; 99214; J1642; J7050; J9299

== ENCOUNTER 2022-12-31 09:49 | Oncology outpatient (recurring) (ONCR) | payer MEDICARE, MEDICAID, SELFPAY ==
[2022-12-31 09:49] VITALS: BMI 28.3
[2022-12-31 09:50] VITALS: BP 157/75; PULSE 69; RESP 18; TEMP 36.4; O2SAT 97
[2022-12-31 10:09] LABS: Basophils % 0.7 %; Eosinophils # 0.4 10^3/uL (0.0-0.8); Eosinophils % 7.3 %; Lymphocytes # 1.3 10^3/uL (0.8-4.8); Lymphocytes % 22.9 %; Mean Corpuscular HGB Conc 33.3 g/dL (30.0-36.0); Mean Corpuscular Hemoglobin 32.5 pg (28.0-34.0); Mean Corpuscular Volume 97.5 fl (80-94); Mean Platelet Volume 10.7 fL (7.4-10.4); Monocytes # 0.5 10^3/uL (0.2-0.9); Monocytes % 8.7 %; Neutrophils # 3.38 10^3/uL (1.8-7.7); Neutrophils % 59.9 %; Nucleated Red Blood Cells % 0 %; Platelet Count 193 10^3/cmm (130-400); Red Cell Distribution Width 13.3 % (12.1-15.1); White Blood Count 5.6 10^3/uL (4.0-10.0)
[2022-12-31 10:42] LABS: Alanine Aminotransferase 11 U/L (0-41); Albumin Level 4.2 g/dL (3.5-5.2); Alkaline Phosphatase 74 U/L (40-130); Aspartate Amino Transferase 21 U/L (0-40); Blood Urea Nitrogen 21 mg/dL (8-23); Calcium 9.4 mg/dL (8.5-10.5); Carbon Dioxide 29 mmol/L (22-29); Chloride 108 mmol/L (98-107); Globulin 2.6 g/dL (1.3-4.6); Glucose 124 mg/dL (65-115); Osmolality Calculated 306 mOsm/kg (285-295); Sodium 146 mmol/L (136-145); Thyroid Stimulating Hormone 15.79 uIU/mL (0.27-4.20); Total Bilirubin 0.4 mg/dL (0.15-1.2); Total Protein 6.8 g/dL (6.6-8.7)
[2022-12-31] MEDS: sodium chloride 0.9% 250 ML 75 ML IV (12:18)
[2022-12-31] MEDS: nivolumab 480 MG in sodium chloride 0.9% 250 ML 596 MG IV (12:57)
[2022-12-31 13:32] VITALS: BP 159/87; PULSE 77; RESP 18; TEMP 36.1; O2SAT 98
== END 2022-12-31 23:59 | disposition home or self-care (01) ==
PROVIDERS: Nurse Practitioner Family; PCP Nurse Practitioner Family; Visit Provider Internal Medicine Hematology & Oncology
DX: Z51.12 Encounter for antineoplastic immunotherapy (principal); C43.59 Malignant melanoma of other part of trunk; C77.3 Secondary and unspecified malignant neoplasm of axilla and upper limb lymph nodes; E03.9 Hypothyroidism, unspecified; Z79.899 Other long term (current) drug therapy; Z95.0 Presence of cardiac pacemaker; F41.9 Anxiety disorder, unspecified; F32.9 Major depressive disorder, single episode, unspecified
CPT/HCPCS: 80053; 84443; 85025; 96413; 99214; J1642; J7050; J9299

== ENCOUNTER → 2023-01-15 13:55 | Outpatient (BNVA) | payer MEDICARE, MEDICAID, SELFPAY | PROVIDERS: PCP Nurse Practitioner Family; Visit Provider Internal Medicine Cardiovascular Disease | DX: Z95.0 Presence of cardiac pacemaker (principal); I48.91 Unspecified atrial fibrillation; E03.9 Hypothyroidism, unspecified | CPT/HCPCS: 99214 ==

== ENCOUNTER 2023-01-16 10:34 | Outpatient (CLI) | payer MEDICARE, MEDICAID, SELFPAY ==
[2023-01-16 11:24] LABS: Basophils % 0.6 %; Eosinophils # 0.3 10^3/uL (0.0-0.8); Eosinophils % 4.1 %; Hematocrit 41.3 % (42.0-52.0); Hemoglobin 13.6 g/dL (11.7-16.6); Lymphocytes # 1.2 10^3/uL (0.8-4.8); Lymphocytes % 17.1 %; Mean Corpuscular HGB Conc 32.9 g/dL (30.0-36.0); Mean Corpuscular Hemoglobin 32.1 pg (28.0-34.0); Mean Corpuscular Volume 97.4 fl (80-94); Mean Platelet Volume 10.5 fL (7.4-10.4); Monocytes # 0.6 10^3/uL (0.2-0.9); Monocytes % 8.6 %; Neutrophils # 4.78 10^3/uL (1.8-7.7); Neutrophils % 69.2 %; Nucleated Red Blood Cells % 0 %; Platelet Count 165 10^3/cmm (130-400); Red Blood Count 4.24 10^6/uL (4.1-5.3); Red Cell Distribution Width 13.2 % (12.1-15.1); White Blood Count 6.9 10^3/uL (4.0-10.0)
[2023-01-16 11:35] LABS: INR 0.99 (0.83-1.21); Prothrombin Time (Patient) 13.4 Seconds (12.0-15.1)
[2023-01-16 11:50] LABS: Anion Gap 12.1 (5-19); Blood Urea Nitrogen 14 mg/dL (8-23); Calcium 8.7 mg/dL (8.5-10.5); Carbon Dioxide 30 mmol/L (22-29); Chloride 106 mmol/L (98-107); Glucose 113 mg/dL (65-115); NT Pro B Type Natriuretic Pept 294 pg/mL (0-450); Osmolality Calculated 299 mOsm/kg (285-295); Potassium 4.1 mmol/L (3.5-5.1); Sodium 144 mmol/L (136-145)
== END 2023-01-16 10:35 | disposition home or self-care (01) ==
PROVIDERS: PCP Nurse Practitioner Family; Visit Provider Internal Medicine Cardiovascular Disease
DX: Z45.010 Encounter for checking and testing of cardiac pacemaker pulse generator [battery] (principal)
CPT/HCPCS: 36415; 80048; 83880; 85025; 85610; 86850; 86900

== ENCOUNTER 2023-01-21 14:22 | Observation (INO) | payer MEDICARE, MEDICAID, SELFPAY ==
[2023-01-21 11:41] VITALS: BP 165/87; PULSE 68; RESP 16; TEMP 37.1; BMI 28.4
--- NOTE | 2023-01-21 12:12 | W.PM.OPSUD ---
Surgery/Procedure H&P Update DATE OF PROCEDURE: January 21, 2023 DATE H&P PERFORMED: 01/15/23 H&P UPDATE INFORMATION: I have reviewed H&P completed within last 30 days, I have examined patient prior to procedure and No changes to prior documentation PREOP DIAGNOSIS: PPM SRIDEVI PRIMARY INDICATION FOR PROCEDURE: SRIDEVI PLANNED PROCEDURE: Operation Date: 01/21/23 12:00 Proposed Procedures p Generator Change Out [id number](Not Applicable) - Duyen Omalley MD PATIENT REASSESSED PRIOR TO SEDATION, WITH NO CHANGE NOTED: Yes PHYSICAL EXAM: alert, oriented x 3, clear to auscultation bilaterally and regular rate & rhythm AIRWAY EVAL/ANESTHESIA PLAN: normal airway, see other exam findings, ASA III, Monitored Anesthesia, Local Anesthesia, Risks, benefits & alternatives of sedation and/or procedure discussed and Patient agrees to continue as planned ADDITIONAL INFORMATION: The risk of bleeding, hematoma, vascular injury, , infection, and other concomitant complications were explained in detail. The patient understood this well and consented to proceed.
--- NOTE | 2023-01-21 13:49 | PM.OP ---
Operative Report Date of procedure: January 21, 2023 Pre-op diagnosis: Preop Diagnosis PPM SRIDEVI Procedure: PROCEDURE: PACEMAKER REVISION PREOPERATIVE DIAGNOSIS: Pacemaker elective replacement indication. POSTOPERATIVE DIAGNOSIS: Pacemaker elective replacement indication. ESTIMATED BLOOD LOSS: Around 5 milliliters. COMPLICATIONS: None. BRIEF HISTORY: The patient is 82-year-old white male who had a permanent pacemaker implantation for symptomatic bradycardia/intermittent atrial flutter/fibrillation. The patient was found to have elective replacement indication, during routine office followup evaluation. For further management of patient's condition for the symptomatic bradycardia, the patient required a pacemaker revision. Patient required a dual-chamber pacemaker for symptom relief and the need for AV synchrony The procedure was explained to the patient in detail with the risks and benefits. The risks of bleeding, hematoma, vascular injury, infection and other concomitant complications were explained in detail, which the patient understood well and consented to proceed. PROCEDURES PERFORMED: 1. Explantation of the old pacemaker generator. 2. Implantation of the new generator. The patient brought to the Cardiac Moto Mix Operator. The left side of the neck and the subclavian area were cleaned and draped in a sterile fashion. 1% Xylocaine was used for local anesthetic agent. A 2 inch long incision was made just below the previous pacemaker scar. By sharp and blunt dissection, the pacemaker pocket was accessed. The old generator was delivered from the pocket. The generator was detached from the lead. The new Medtronic generator was attached to the lead. The pacemaker pocket was copiously irrigated with vancomycin solution. Complete hemostasis was achieved. The lead was positioned behind the generator and the generator was attached to the pectoralis fascia by suturing with 0 Surgilon. Sponge counts were confirmed. The pacemaker pocket was closed in layers. Skin was approximated using 4-0 Vicryl. EXPLANTED DEVICE: Pacemaker Generator: Brand: Dara ROMERO Model number: PM 2210. Serial number: [id number]. Date of implant: 11/12/2013 IMPLANTED DEVICES: Ventricular Lead: Date of implantation: 11/12/2013 Model number: [id number] TC Serial number: [id number] Make: [employer]. Atrial lead Date of implantation: 1940 Model number: [id number] Serial number: [id number] Make: [employer]. Implanted Generator: Date of implantation : 01/21/2023 Brand: Madiha Walker Model number: W1 DR 01 Serial number: [id number] Make: [employer] Stimulation Threshold: The ventricular sensing was not obtained because of the pacemaker dependency. Ventricular lead impedance was 475 ohms and the pacing threshold was 1.0 volts at 0.4 milliseconds. The atrial sensing was 1.4 millivolts. Atrial lead impedance was 380 ohms and the pacing threshold was 0.5 volts at 0.4 milliseconds. The pacemaker was set for DDD mode with an upper rate of 130 and a lower rate of 70. A pressure dressing was applied over the pacemaker site. The patient was transferred back to medical floor in stable condition. Sponge counts were correct.
[2023-01-21] MEDS: sodium chloride 0.9% 1,000 ML 75 ML IV (15:14)
[2023-01-21 17:00] VITALS: BP 162/82; PULSE 69; RESP 18; TEMP 36.6; O2SAT 93
[2023-01-21] MEDS: BuSPIRONE 10 mg Tablet 5 MG PO (17:32)
[2023-01-21] MEDS: ceFAZolin 2,000 MG in sodium chloride 0.9% (plus) 50 ML 100 MG IV (20:09)
[2023-01-21 22:29] VITALS: BP 154/72; PULSE 69; RESP 18; TEMP 36.6; O2SAT 90
[2023-01-22 00:38] VITALS: BP 131/75; PULSE 69; RESP 19; TEMP 37.3; O2SAT 91
[2023-01-22] MEDS: sodium chloride 0.9% 1,000 ML 75 ML IV (03:02)
[2023-01-22] MEDS: ceFAZolin 2,000 MG in sodium chloride 0.9% (plus) 50 ML 100 MG IV ×2 (04:20→11:10)
[2023-01-22 05:08] VITALS: BP 172/95; PULSE 69; RESP 22; TEMP 36.8; O2SAT 90
[2023-01-22 06:00] VITALS: PULSE 73
--- NOTE | 2023-01-22 06:00 | ECG_ITS ---
[facility] Test Date: 2023-01-22 Pat Name: Randell Paul Department: Room: 252 Gender: Male Oral Hygienist: : 1940 Requested By: Duyen Omalley Order Number: [id number] [place] MD: Duyen Omalley M.D. Measurements Intervals [place] Rate: 70 P: 194 [place]: 176 QRS: -78 QRSD: 182 T: 105 QT: 470 QTc: 507 Interpretive Statements ELECTRONIC ATRIAL PACEMAKER ELECTRONIC VENTRICULAR PACEMAKER ABNORMAL RHYTHM ECG No previous ECG available for comparison Electronically Signed On 01-23-2023 20:12:06 CDT by Duyen Omalley M.D. [email or web address] [email or web address]/store/[id number]
--- NOTE | 2023-01-22 07:07 | PC.NURSE ---
Pacemaker check performed this AM. Report in chart
[2023-01-22 09:10] VITALS: BP 164/83; PULSE 70; RESP 18; TEMP 36.8; O2SAT 92
[2023-01-22 09:33] VITALS: BP 164/83
[2023-01-22] MEDS: BuSPIRONE 10 mg Tablet 5 MG PO (09:33)
[2023-01-22] MEDS: losartan 50 mg Tablet PO (09:33)
[2023-01-22] MEDS: levothyroxine 100 mcg Tablet PO (09:34)
[2023-01-22] MEDS: amlodipine 5 mg Tablet PO (09:34)
--- NOTE | 2023-01-22 09:55 | PC.CHAP ---
Pastoral Care Encounter/Spiritual Assessment Type of Contact [] Declined chain forming machine operator visit [] Patient/Family/Request visit [] Outpatient visit [] Follow-up visit [] Physician referral [] Code/Alert [x] Routine visit [] Staff referral [] Actively dying [] Patient sleeping [] Family support [] [] Out of room [] Palliative care [] [] Receiving care in room [] Pre-surgical visit [] Trauma [] Long length of stay [] ICU visit [] Other: Relational/Emotional Strength [x] Patient feels connected with others/family/visitors/staff [] Distress [] Loneliness/isolation [] Abandonment Spirituality of Patient [x] Person of Cheryl [] Attends Synagogue of their Cheryl [x] Believes in Prayer [] Reads Bible or Taoism materials [] There are Spiritual issues to be addressed Covered Button Maker Interventions [x] Prayer [x] Active listening [] Non-anxious presence [x] Spiritual/emotional support [] Crisis/trauma care [] Spiritual counseling [] Bereavement support [] Provided bereavement packet [] Provided Bible/devotional materials [] Provided toy/stuffed animal, coloring book to patient or family member [] Provided Communion [] Anointing/[place] [] Salvation [x] Completed spiritual assessment [] Other: Impact on Illness or Injury [] Angry [] Fearful [] Anxious [] Often cries [] Exhaustion [] Unable to work [] Unable to attend uatsdin [] Unable to walk/stand [] Unable to read [] Unable to drive [] Unable to eat/drink [] Unable to sleep [] Unable to be with family [] Patient intubated [] Other: Summary Time spent with patient 5 min
[2023-01-22 12:07] VITALS: BP 164/83
== END 2023-01-22 12:08 | disposition home or self-care (01) ==
LOC: MEDSURG 14:22
PROVIDERS: Admitting Provider Internal Medicine Cardiovascular Disease; PCP Nurse Practitioner Family; Visit Provider Internal Medicine Cardiovascular Disease
DX: Z45.010 Encounter for checking and testing of cardiac pacemaker pulse generator [battery] (principal); I48.20 Chronic atrial fibrillation, unspecified; I10 Essential (primary) hypertension; E03.9 Hypothyroidism, unspecified; Z79.899 Other long term (current) drug therapy
CPT/HCPCS: 33228; 36415; 93005; 96361; 96365; 97165; 99152; 99153; A4216; C1769; C1786; G0378; J0690; J2250; J3010; J3370; J7030; J7050

== ENCOUNTER 2023-02-06 08:19 | Oncology outpatient (recurring) (ONCR) | payer MEDICARE, MEDICAID, SELFPAY ==
[2023-02-06 08:42] LABS: Basophils # 0.1 10^3/uL (0.0-0.1); Basophils % 0.8 %; Eosinophils # 0.4 10^3/uL (0.0-0.8); Eosinophils % 5.5 %; Lymphocytes # 1.4 10^3/uL (0.8-4.8); Lymphocytes % 21.8 %; Mean Corpuscular HGB Conc 32.8 g/dL (30-55); Mean Corpuscular Hemoglobin 31.4 pg (27-33); Mean Corpuscular Volume 95.9 fl (82-101); Mean Platelet Volume 9.9 fL (7.4-10.4); Monocytes # 0.7 10^3/uL (0.2-0.9); Monocytes % 10.8 %; Neutrophils # 3.89 10^3/uL (1.8-7.7); Neutrophils % 60.9 %; Nucleated Red Blood Cells % 0 %; Platelet Count 256 10^3/cmm (157-399); Red Blood Count 4.17 10^6/uL (3.85-5.65); Red Cell Distribution Width 12.3 % (12.1-15.1); White Blood Count 6.38 10^3/uL (3.29-11.43)
[2023-02-06 09:08] LABS: Alanine Aminotransferase 8 U/L (0-41); Albumin Level 4.2 g/dL (3.5-5.2); Alkaline Phosphatase 67 U/L (40-130); Anion Gap 10.9 (5-19); Aspartate Amino Transferase 19 U/L (0-40); Blood Urea Nitrogen 17 mg/dL (8-23); Carbon Dioxide 31 mmol/L (22-29); Chloride 106 mmol/L (98-107); Globulin 2.8 g/dL (1.3-4.6); Glucose 130 mg/dL (65-115); Osmolality Calculated 301 mOsm/kg (285-295); Potassium 3.9 mmol/L (3.5-5.1); Sodium 144 mmol/L (136-145); Thyroid Stimulating Hormone 2.88 uIU/mL (0.27-4.20); Total Bilirubin 0.4 mg/dL (0.15-1.2)
[2023-02-06] MEDS: sodium chloride 0.9% 250 ML 75 ML IV (10:05)
[2023-02-06] MEDS: nivolumab 480 MG in sodium chloride 0.9% 250 ML 596 MG IV (10:06)
[2023-02-06 11:10] VITALS: BP 154/69; PULSE 70; RESP 17; TEMP 36.2; O2SAT 96
== END 2023-02-06 23:59 | disposition home or self-care (01) ==
PROVIDERS: Nurse Practitioner Family; PCP Nurse Practitioner Family; Visit Provider Internal Medicine Hematology & Oncology
DX: Z51.12 Encounter for antineoplastic immunotherapy (principal); C43.9 Malignant melanoma of skin, unspecified; E03.9 Hypothyroidism, unspecified; Z79.899 Other long term (current) drug therapy
CPT/HCPCS: 80053; 84443; 85025; 96413; 99213; J1642; J7050; J9299

== ENCOUNTER 2023-05-30 17:17 | Inpatient (IN) | payer MEDICARE, MEDICAID, SELFPAY ==
[2023-05-30] VITALS (7 sets, daily range): BP systolic 112–135; BP diastolic 67–92; PULSE 58–71; RESP 15–16; TEMP 36.5–37; O2SAT 94–98; BMI 30.7
--- NOTE | 2023-05-30 17:23 | XRR_ITS ---
PROCEDURE INFORMATION: Exam: XR Chest Exam date and time: 05/30/2023 5:41 PM Age: 82 years old Clinical indication: Other: Weakness TECHNIQUE: Imaging protocol: Radiologic exam of the chest. Views: 1 view. COMPARISON: CR XR chest 1V [id number] 02/27/2022 10:20 AM FINDINGS: Lungs: No focal consolidation. Pleural spaces: No pleural effusion. No pneumothorax. Heart/Mediastinum: No cardiomegaly. Bones/joints: No acute findings. XR/XR chest 1V portable [id number] IMPRESSION: No acute findings.
--- NOTE | 2023-05-30 17:23 | ECG_ITS ---
[facility] Test Date: 2023-05-30 Pat Name: Randell Paul Department: Room: Gender: Male Consumer Insight Manager: : 1940 Requested By: Cece Schulz Order Number: [id number] [place] MD: Levi Rodriguez M.D. Measurements Intervals [place] Rate: 70 P: -62 [place]: 144 QRS: -86 QRSD: 190 T: 94 QT: 497 QTc: 538 Interpretive Statements ELECTRONIC VENTRICULAR PACEMAKER ABNORMAL RHYTHM ECG Compared to ECG 01/22/2023 04:53:06 Atrial-paced complex(es) or rhythm no longer present Electronically Signed On 05-30-2023 17:40:39 SPEECH THERAPY ASSISTANT by Levi Rodriguez M.D. [id number]
--- NOTE | 2023-05-30 17:42 | W.ED.GENADLT ---
HPI - General Adult General: Chief complaint: General Medical Stated complaint: unable to care for self Time Seen by Provider: 05/30/23 17:22 Source: patient and EMS Mode of arrival: EMS Limitations: no limitations History of Present Illness: 82-year-old male from what I can gather please have been called for wellness check. Patient lives home alone states he used to live with his sister but he believes she is now in a snf she had left 3 to 4 weeks ago. Per EMS patient has not been taking care of his self he has not been eating he has not taken a bath in over 2 weeks he is extremely dirty they state that he had no heater in his house and that his house was not livable patient states he is not able to care for himself or for his house. He has no medical complaints Associated symptoms: Deny chest pain, dyspnea, headache(s), nausea, rash or vomiting Review of Systems Const: Denies: fever(s), chills, body aches or change in appetite Eyes: Denies: blurry vision or eye discomfort ENMT: Denies: throat pain or dental pain Card: Denies: chest pain Resp: Denies: dyspnea GI: Denies: abdominal pain, nausea, vomiting or diarrhea : Denies: dysuria Musc: Denies: neck pain or back pain Skin/Breast: Denies: rash Neuro: Denies: headache(s) PFSH ED PFSH: Medical History Malignant melanoma Family History Other Adopted Social History Smoking and tobacco/nicotine status: never used tobacco/nicotine Alcohol intake: former Substance/Drug Use: never Physical Exam Const: COMMON NORMALS: patient oriented x3 GENERAL APPEARANCE: disheveled HENMT: COMMON NORMALS: normocephalic and atraumatic HEAD & SCALP: normocephalic and atraumatic Eye: COMMON NORMALS: Equal, round and reactive pupils present and EOMs intact bilaterally PUPIL: Yes Equal, round and reactive pupils present Neck/C-Spine: COMMON NORMALS: full ROM and supple Chest: COMMONS NORMALS: normal inspection of the chest and normal palpation of entire chest wall Resp: COMMON NORMALS: normal respiratory effort, No retractions, No use of accessory muscles and clear to auscultation bilaterally AUSCULTATION: clear to auscultation bilaterally Cardio: COMMON NORMALS: regular rate, regular rhythm and No murmurs present (Cardio) RATE: regular rate RHYTHM: regular rhythm GI: COMMON NORMALS: Normal to inspection, nondistended, normoactive bowel sounds present, Soft to palpation, non-tender and no masses PALPATION: Yes Soft to palpation Extremity: COMMON NORMALS: normal to inspection and full ROM Neuro: COMMON NORMALS: patient oriented x3, moves all extremities and no focal motor deficits Psych: COMMON NORMALS: mental status grossly normal, Normal thought process present and cooperative THOUGHT PROCESS: Normal thought process present Skin: COMMON NORMALS: no rashes or lesions noted and no wounds GENERAL SKIN EXAM: no rashes or lesions noted Course Vital Signs: Vital signs: Vital Signs Temperature 97.7 F 05/30/23 17:21 Pulse Rate 71 05/30/23 18:59 Respiratory Rate 16 05/30/23 18:59 Blood Pressure 112/77 05/30/23 18:59 Pulse Oximetry 95 05/30/23 18:59 Oxygen Delivery Me thod Room Air 05/30/23 18:22 MDM - General Adult Medical Decision Making Patient presents here with acute dehydration acute kidney injury. Patient is disheveled here does not appear to been taking care of himself spoke to hospitalist will admit at this time patient is given IV fluids here. Medical Records I reviewed the patient's medical records. Lab Data I reviewed the patient's lab results. 05/30/23 17:35 05/30/23 17:35 Radiology Impressions Chest X-Ray 05/30/23 17:23 IMPRESSION: No acute findings. Laboratory Results WBC 5.68 10^3/uL (3.29-11.43) 05/30/23 17:35 RBC 5.41 10^6/uL (3.85-5.65) 05/30/23 17:35 Hgb 16.90 g/dL (11.27-16.99) 05/30/23 17:35 Hct 51.2 % (37-53) 05/30/23 17:35 MCV 94.6 fl (82-101) 05/30/23 17:35 MCH 31.2 pg (27-33) 05/30/23 17:35 MCHC 33.0 g/dL (30-55) 05/30/23 17:35 RDW 14.1 % (12.1-15.1) 05/30/23 17:35 Plt Count 121 10^3/cmm (157-399) L 05/30/23 17:35 MPV 12.1 fL (7.4-10.4) H 05/30/23 17:35 Neut % (Auto) 83.3 % 05/30/23 17:35 Lymph % (Auto) 12.3 % 05/30/23 17:35 [place] % (Auto) 3.7 % 05/30/23 17:35 Eos % (Auto) 0.0 % 05/30/23 17:35 Baso % (Auto) 0.5 % 05/30/23 17:35 Neut # (Auto) 4.73 10^3/uL (1.8-7.7) 05/30/23 17:35 Lymph # (Auto) 0.7 10^3/uL (0.8-4.8) L 05/30/23 17:35 [place] # (Auto) 0.2 10^3/uL (0.2-0.9) 05/30/23 17:35 Eos # (Auto) 0.0 10^3/uL (0.0-0.8) 05/30/23 17:35 Baso # (Auto) 0.0 10^3/uL (0.0-0.1) 05/30/23 17:35 Nucleated RBC % (auto) 0 % 05/30/23 17:35 Nucleated RBCs # 0.0 /100WBC 05/30/23 17:35 PT 15.50 SECONDS (12.1-14.9) H 05/30/23 17:35 INR 1.19 (0.8-1.2) 05/30/23 17:35 Sodium 152 mmol/L (136-145) H 05/30/23 17:35 Potassium 4.2 mmol/L (3.5-5.1) 05/30/23 17:35 Chloride 104 mmol/L (98-107) 05/30/23 17:35 Carbon Dioxide 24 mmol/L (22-29) 05/30/23 17:35 Anion Gap 28.2 (5-19) H 05/30/23 17:35 BUN 28 mg/dL (8-23) H 05/30/23 17:35 Creatinine 2.2 mg/dL (0.7-1.2) H 05/30/23 17:35 GFR Calculation Not Reportable 05/30/23 17:35 Glucose 155 mg/dL (65-115) H 05/30/23 17:35 Calculated Osmolality 323 mOsm/kg (285-295) H 05/30/23 17:35 Calcium 10.2 mg/dL (8.5-10.5) 05/30/23 17:35 Magnesium 2.6 mg/dL (1.7-2.3) H 05/30/23 17:35 Total Bilirubin 1.6 mg/dL (0.15-1.2) H 05/30/23 17:35 AST 32 U/L (0-40) 05/30/23 17:35 ALT 11 U/L (0-41) 05/30/23 17:35 Alkaline Phosphatase 53 U/L (40-130) 05/30/23 17:35 Creatine Kinase 199 U/L (39-308) 05/30/23 17:35 Total Protein 8.1 g/dL (6.6-8.7) 05/30/23 17:35 Albumin 4.9 g/dL (3.5-5.2) 05/30/23 17:35 Globulin 3.2 g/dL (1.3-4.6) 05/30/23 17:35 Urine Color Yellow (Yellow) 05/30/23 18:49 Urine Appearance Clear (CLEAR) 05/30/23 18:49 Urine pH 5 (5-7) 05/30/23 18:49 Ur Specific Carbon 1.025 (1.005-1.030) 05/30/23 18:49 Urine Protein 1+ (Negative) H 05/30/23 18:49 Urine Glucose (UA) Norm (Normal) 05/30/23 18:49 Urine Ketones 1+ (Negative) H 05/30/23 18:49 Urine Blood Neg (Negative) 05/30/23 18:49 Urine Nitrate Negative (Negative) 05/30/23 18:49 Urine Bilirubin 1+ (Negative) H 05/30/23 18:49 Urine Urobilinogen 1 mg/dL (Negative) H 05/30/23 18:49 Ur Leukocyte Esterase Negative (Negative) 05/30/23 18:49 Urine RBC 0-4 /hpf (0-2) H 05/30/23 18:49 Urine WBC 0-4 /hpf (0-5) H 05/30/23 18:49 Ur Squamous Epith Cells None /hpf (0-5) 05/30/23 18:49 Ur Renal Epithelial Cell 0-4 /hpf 05/30/23 18:49 Amorphous Sediment Not Reportable 05/30/23 18:49 Urine Bacteria Trace /hpf (NONE) 05/30/23 18:49 Urine Mucus 1+ /hpf 05/30/23 18:49 All radiology interpretation(s) finalized by discharge EKG Data EKG 1: I personally reviewed and interpreted this EKG as follows: EKG interpretation date: 05/30/23 EKG interpretation time: 17:28 Interpretation: paced hr [address] or t wave abormalities qrs 190 qtc 518 Computer generated interpretation: Chest X-Ray 05/30/23 17:23 IMPRESSION: No acute findings. Discharge Plan Discharge Patient Disposition: Admitted As Inpatient Admit Provider: Bharat Kay Clinical Impression: Acute kidney injury, Dehydration Condition: Stable Coding Level of Care Code ED Surface Grinding Machine Hand for Beth Jose
[2023-05-30 17:51] LABS: Basophils % 0.5 %; Hematocrit 51.2 % (37-53); Lymphocytes # 0.7 10^3/uL (0.8-4.8); Lymphocytes % 12.3 %; Mean Corpuscular Hemoglobin 31.2 pg (27-33); Mean Corpuscular Volume 94.6 fl (82-101); Mean Platelet Volume 12.1 fL (7.4-10.4); Monocytes # 0.2 10^3/uL (0.2-0.9); Monocytes % 3.7 %; Neutrophils # 4.73 10^3/uL (1.8-7.7); Neutrophils % 83.3 %; Nucleated Red Blood Cells % 0 %; Platelet Count 121 10^3/cmm (157-399); Red Blood Count 5.41 10^6/uL (3.85-5.65); Red Cell Distribution Width 14.1 % (12.1-15.1); White Blood Count 5.68 10^3/uL (3.29-11.43)
[2023-05-30 17:59] LABS: INR 1.19 (0.8-1.2)
[2023-05-30 18:05] LABS: Alanine Aminotransferase 11 U/L (0-41); Albumin Level 4.9 g/dL (3.5-5.2); Alkaline Phosphatase 53 U/L (40-130); Anion Gap 28.2 (5-19); Aspartate Amino Transferase 32 U/L (0-40); Blood Urea Nitrogen 28 mg/dL (8-23); Calcium 10.2 mg/dL (8.5-10.5); Carbon Dioxide 24 mmol/L (22-29); Chloride 104 mmol/L (98-107); Creatine Phosphokinase 199 U/L (39-308); Globulin 3.2 g/dL (1.3-4.6); Glucose 155 mg/dL (65-115); Magnesium 2.6 mg/dL (1.7-2.3); Osmolality Calculated 323 mOsm/kg (285-295); Potassium 4.2 mmol/L (3.5-5.1); Sodium 152 mmol/L (136-145); Total Bilirubin 1.6 mg/dL (0.15-1.2); Total Protein 8.1 g/dL (6.6-8.7)
[2023-05-30] MEDS: sodium chloride 0.9% 1,000 ML 999 ML IV ×2 (18:39→20:38)
[2023-05-30 19:11] LABS: Urine Appearance Clear (CLEAR); Urine Color Yellow (Yellow)
[2023-05-30 19:12] LABS: Add Urine Microscopic? YES; Bilirubin Urine 1+ (Negative); Blood Urine Neg (Negative); Glucose Urine UA Norm (Normal); Ketones Urine 1+ (Negative); Leukocyte Esterase Urine Negative (Negative); Nitrate Urine Negative (Negative); Protein Urine 1+ (Negative); Specific Gravity, Urine 1.025 (1.005-1.030); Urobilinogen Urine 1 mg/dL (Negative); pH Urine 5 (5-7)
[2023-05-30 19:17] LABS: Add Urine Culture? No; Bacteria Urine TRACE /hpf; Mucus Urine 1+ /hpf; RBC Urine 0-4 /hpf (0-2); Renal Epithelial Cells Urine 0-4 /hpf; WBC Urine 0-4 /hpf (0-5)
[2023-05-30] MEDS: pantoprazole 40 mg SDV IVP (21:51)
[2023-05-30] MEDS: dextrose 5%-sod chloride 0.45% 1,000 ML 100 ML IV (21:52)
[2023-05-30] MEDS: heparin 5,000 unit/mL INJ 1 mL 5000 UNIT SUBCUT (21:55)
--- NOTE | 2023-05-30 22:00 | PM.HP ---
Providers/Chief Complaint Admitting Physician: Bharat Kay MD Primary Care Provider: Felicia Peters Chief Complaint: unable to care for self History of Present Illness Randell Paul is a 82 year old male with past medical history of malignant melanoma for which he was on treatment with nivolumab until 02/2023, h/o BPH, s/p PPM, hypertension and hypothyroidism who was brought into the emergency room today after neighbors called for a welfare check. Patient usually lives with his sister and was her primary caregiver until about 2 weeks ago when his sister . He states that the house in which they were living has now been put up for sale by the hazardous waste remover. He states he has not been eating or drinking well over the past few days and feels overall fatigued and unwell. He was found to be dehydrated with poor living conditions and was therefore brought to the emergency room. He denies any specific complaints of URI type symptoms, cough dyspnea chest pain palpitations or syncope. Denies any abdominal pain nausea or vomiting. He has no specific complaints at this time except for generalized fatigue. Review of Systems General: Reports: 10 or more systems reviewed and unremarkable except in HPI and below Const: Denies: fever(s), chills or body aches Eyes: Denies: change in vision, blurry vision or photophobia ENMT: Reports: hoarseness; Denies: throat pain, enlarged tonsils, odynophagia or nasal congestion Card: Denies: chest pain, palpitations, irregular heart rhythm, edema, swelling of feet/ankles, lightheadedness, pre-syncope, dyspnea on exertion or orthopnea Resp: Denies: dyspnea, productive cough, non-productive cough, wheezing, stridor, pain on inspiration, change in phlegm color, hemoptysis or chest congestion GI: Denies: abdominal pain, nausea, vomiting, hematemesis, coffee ground emesis, dysphagia, heartburn, diarrhea, constipation, GI cramping, change in stool character, hematochezia or melena : Denies: flank pain, dysuria, urinary frequency, urinary urgency, urinary hesitancy or hematuria Musc: Denies: neck pain, back pain, extremity pain, joint swelling, joint warmth or deformity Neuro: Denies: headache(s), numbness in extremities, weakness in extremities, sensory changes, difficulty walking, frequent falls, dizziness, vertigo, behavioral changes, Slurred speech present or seizure-like activity Psych: Denies: anxiety, depression, suicidal ideation or homicidal ideation Endo: Denies: polyuria, polydipsia, tired all the time, cold intolerance or hot flashes Bertin/Lymph: Denies: easy bruising or easy bleeding Medications/Allergies Home Medications Medication Instructions Recorded Confirmed Last Taken Type buspirone 5 mg tablet 5 mg PO BID 10/04/22 02/06/23 Unknown History losartan 50 mg tablet 50 mg PO DAILY 10/04/22 02/06/23 Unknown History amlodipine 5 mg tablet 5 mg PO DAILY #30 tabs 10/18/22 02/06/23 Unknown Rx levothyroxine 100 mcg tablet 100 mcg PO DAILY #30 tabs 12/31/22 02/06/23 01/21/23 07:00 Rx Allergies Allergy/AdvReac Type Severity Reaction Status Date / Time No Known Allergies Allergy Verified 02/06/23 09:16 PFSH Acute PFSH: Medical History Malignant melanoma Family History Other Adopted Social History Smoking and tobacco/nicotine status: never used tobacco/nicotine Alcohol intake: former Substance/Drug Use: never Vitals/I&O/Wt Last Vital Signs Temp 97.6 F 05/31/23 03:13 Pulse 69 05/31/23 03:13 Resp 14 05/31/23 03:13 BP 116/79 05/31/23 03:13 Pulse Ox 93 05/31/23 03:13 O2 Del Method Room Air 05/31/23 03:13 05/30/23 05/30/23 05/31/23 14:59 22:59 06:59 Intake Total 1999 Balance 1999 Weight last 48 hrs Weight 72.348 kg Weight 72.348 kg Weight 83.915 kg Data 05/31/23 04:45 05/31/23 04:45 A&P Assessment and plan (1) Dehydration: (2) Acute kidney injury: (3) Hypernatremia: Plan 82-year-old male with past medical history as outlined above presented to the hospital today after a wellness check and found to have poor living conditions. He states he has had very poor p.o. intake over the last 3 to 4 days. He has felt very fatigued since his sister 2 weeks ago. Today he has evidence of dehydration. His skin is dry and parched, mucous membranes are dry. Sodium is at 152 reflecting hyponatremia. Creatinine at 2.2, up from a baseline of 0.9-1 reflective of acute kidney injury. Check UA, urine lites Suspect that his electrolyte abnormalities and BEENA is related to dehydration Start IV fluids D5 half-normal saline at 100 cc an hour and closely monitor renal function. Check [facility] PT OT eval to assess functional status to direct appropriate disposition planning. Check TSH, B12, rapid COVID antigen Attestations Medical Necessity Statement*: > 2 midnight stay is anticipated for need for iv fluids, close monitorin gof kidney function and urine output, appropriate disposition planning Coding Level of Care Code Acute Code for Chg Fwd Moderate MDM includes number and complexity of problems actively addressed during encounter, amount and/or complexity of data reviewed/ordered and described risk of complication, morbidity or mortality of management as documented Diagnoses Dehydration E86.0 Acute kidney injury N17.9 Hypernatremia E87.0
[2023-05-30 23:30] LABS: Iron 96 ug/dL (59-158); Percent Saturation 34.4 % (20-50); Total Iron Binding Capacity 279 mcg/dl; Unsaturated Iron Binding 183 ug/dL (112-347)
[2023-05-30 23:45] LABS: Procalcitonin 0.11 ng/mL (0-0.5); Vitamin B12 1416 pg/mL (232-1245)
[2023-05-31] VITALS (7 sets, daily range): BP systolic 116–146; BP diastolic 76–92; PULSE 64–76; RESP 14–18; TEMP 36.4–37; O2SAT 93–96
[2023-05-31 05:00] LABS: Basophils % 0.5 %; Eosinophils % 0.5 %; Hematocrit 43.1 % (37-53); Lymphocytes # 1.3 10^3/uL (0.8-4.8); Lymphocytes % 23.2 %; Mean Corpuscular HGB Conc 32.7 g/dL (30-55); Mean Corpuscular Hemoglobin 31.1 pg (27-33); Mean Corpuscular Volume 94.9 fl (82-101); Monocytes # 0.3 10^3/uL (0.2-0.9); Monocytes % 5.4 %; Neutrophils # 3.99 10^3/uL (1.8-7.7); Neutrophils % 70.2 %; Nucleated Red Blood Cells % 0 %; Platelet Count 101 10^3/cmm (157-399); Red Blood Count 4.54 10^6/uL (3.85-5.65); White Blood Count 5.69 10^3/uL (3.29-11.43)
[2023-05-31 05:24] LABS: Alanine Aminotransferase 8 U/L (0-41); Albumin Level 3.7 g/dL (3.5-5.2); Alkaline Phosphatase 41 U/L (40-130); Aspartate Amino Transferase 28 U/L (0-40); Blood Urea Nitrogen 25 mg/dL (8-23); Carbon Dioxide 24 mmol/L (22-29); Chloride 109 mmol/L (98-107); Globulin 2.5 g/dL (1.3-4.6); Glucose 145 mg/dL (65-115); Magnesium 2.3 mg/dL (1.7-2.3); Osmolality Calculated 305 mOsm/kg (285-295); Phosphorus 2.2 mg/dL (2.5-4.5); Sodium 144 mmol/L (136-145); Total Bilirubin 1.1 mg/dL (0.15-1.2); Total Protein 6.2 g/dL (6.6-8.7)
[2023-05-31 05:25] LABS: Chol HDL Ratio 3.43 mg/dL (1.0-5.00); Cholesterol 158 mg/dL (0-200); HDL Cholesterol 46 mg/dL (60-100); LDL Cholesterol Calculated 90 mg/dL (50-129); LDL HDL Ratio 1.96 RATIO (0.00-3.22); Triglycerides 111 mg/dL (0-150)
[2023-05-31 05:27] LABS: Estmated Average Glucose 137; Hemoglobin A1C 6.4 % (4.0-6.0)
[2023-05-31 05:38] LABS: Folate Level 19.1 ng/mL (4.5-32.2)
[2023-05-31 06:06] LABS: Thyroid Stimulating Hormone 53.82 uIU/mL (0.27-4.20)
[2023-05-31] MEDS: potassium chloride ER 20 mEq Tablet 40 MEQ PO (06:35)
[2023-05-31 07:00] LABS: SARS Covid-2 Antigen negative (Negative)
[2023-05-31] MEDS: BuSPIRONE 10 mg Tablet 5 MG PO ×2 (08:36→17:10)
[2023-05-31] MEDS: dextrose 5%-sod chloride 0.45% 1,000 ML 100 ML IV ×2 (08:37→17:10)
[2023-05-31] MEDS: amlodipine 5 mg Tablet PO (08:37)
[2023-05-31] MEDS: heparin 5,000 unit/mL INJ 1 mL 5000 UNIT SUBCUT ×2 (08:37→20:26)
[2023-05-31] MEDS: levothyroxine 100 mcg Tablet PO (08:37)
--- NOTE | 2023-05-31 09:06 | PC.CHAP ---
Pastoral Care Encounter/Spiritual Assessment Type of Contact [] Declined relationship specialist visit [] Patient/Family/Request visit [] Outpatient visit [] Follow-up visit [] Physician referral [] Code/Alert [x] Routine visit [] Staff referral [] Actively dying [] Patient sleeping [] Family support [] [] Out of room [] Palliative care [] [] Receiving care in room [] Pre-surgical visit [] Trauma [] Long length of stay [] ICU visit [] Other: Relational/Emotional Strength [x] Patient feels connected with others/family/visitors/staff [] Distress [] Loneliness/isolation [] Abandonment Spirituality of Patient [x] Person of Cheryl [] Attends Anabaptist of their Cheryl [x] Believes in Prayer [] Reads Bible or Druze materials [] There are Spiritual issues to be addressed Compact Assembler Interventions [x] Prayer [x] Active listening [] Non-anxious presence [x] Spiritual/emotional support [] Crisis/trauma care [] Spiritual counseling [] Bereavement support [] Provided bereavement packet [] Provided Bible/devotional materials [] Provided toy/stuffed animal, coloring book to patient or family member [] Provided Communion [] Anointing/[place] [] Salvation [x] Completed spiritual assessment [] Other: Impact on Illness or Injury [] Angry [] Fearful [] Anxious [] Often cries [] Exhaustion [] Unable to work [] Unable to attend confucianist [] Unable to walk/stand [] Unable to read [] Unable to drive [] Unable to eat/drink [] Unable to sleep [] Unable to be with family [] Patient intubated [] Other: Summary Time spent with patient 5 min
[2023-05-31 10:36] LABS: T3 Free 0.4 PG/ML (2.0-4.4)
[2023-05-31 10:37] LABS: Cortisol Random 15.01 ug/dL (2.47-19.5)
[2023-05-31] MEDS: levothyroxine 100 mcg SDV IVP (11:23)
--- NOTE | 2023-05-31 12:30 | P.PN_ITS ---
Subjective 2 Subjective: No acute events overnight. Patient is awake and alert. Denies any nausea, vomiting, headache. Able to have complete conversation. Denies any pain. States he is living by himself since his sister . Has stopped taking his medications for last few months. Has not seen a doctor for last few months. Usually eats cereal and is able to take care of his own ADLs. Agreeable to go to SNF for now. Vitals/I&O/Wt Last Vital Signs Temp 97.7 F 05/31/23 07:38 Pulse 76 05/31/23 07:38 Resp 16 05/31/23 07:38 BP 142/92 05/31/23 07:38 Pulse Ox 93 05/31/23 07:38 O2 Del Method Room Air 05/31/23 07:38 05/30/23 05/31/23 05/31/23 22:59 06:59 14:59 Intake Total 1999 / 1999 1000 / 1000 Balance 1999 / 1999 1000 / 1000 Weight last 48 hrs Weight 72.348 kg Weight 72.348 kg Weight 83.915 kg Physical Exam 2 Narrative: General: No acute distress, AO x3, dehydrated on room air HEENT: PERRLA, pupils bilaterally equal and reactive Chest: Normal vesicular breath sounds, no added sounds, equal good air entry bilaterally CVS: S1-S2 regular, no murmurs, no tachycardia, no gallops, no rubs Abdomen: Soft, nontender, no organomegaly, bowel sounds present Neuro: No focal deficits, no facial deformity, AO x3, power 3/5 in all limbs Data 05/31/23 04:45 05/31/23 04:45 A&P Assessment and plan (1) Dehydration: (2) Acute kidney injury: (3) Hypernatremia: (4) Hypothyroid: (5) Abnormal thyroid stimulating hormone (TSH) level: (6) Hypokalemia: (7) Non-compliant behavior: Plan 82-year-old male with past medical history as outlined above presented to the hospital today after a wellness check and found to have poor living conditions. Patient has a history of hypertension, hypothyroidism and pacemaker in place. Noncompliant to medications. Hypernatremia: Resolving. Continue with D5 NS at 75 cc/h. Monitor BMP daily for now. BEENA: Most likely in setting of dehydration. Continue fluid as above. Medical reconstruction done for nephrotoxic drugs. Monitor BMP daily. Hypokalemia: Repleted. Monitor daily. Check magnesium and phosphorus level. Hypothyroidism: Severely abnormal TSH level. Noncompliant to medication. Check free T3 and free T4 along with cortisol levels. Depending on that we will start patient on IV levothyroxine. Will check thyroid panel every 48 hours for now. Discharge plan: Patient lives by himself. Found to be unsafe to live by himself as he was found in disheveled condition. Awake and alert. Agreeable to go to SNF for now. PT evaluation. Plan to discharge to SNF once possible. Type 2 diabetes mellitus: A1c 6.4. Not a known history. Carb consistent diet for now with chest x-ray low-dose protocol. Most likely can be discharged on OHA like Januvia. CODE STATUS: Discussed in detail with the patient. Does not want any kind of resuscitation or life support. DNR/DNI. Carb consistent diet. Famotidine for PUD prophylaxis Heparin 5000 every 12 hourly for DVT prophylaxis. Attestations 2 Medical Necessity Statement*: Requires further hospitalization for management of BEENA, hypernatremia, severe hypothyroidism requiring IV levothyroxine while safe discharge planning is sought. Diagnoses Dehydration E86.0 Acute kidney injury N17.9 Hypernatremia E87.0 Hypothyroid E03.9 Abnormal thyroid stimulating hormone (TSH) level R79.89 Hypokalemia E87.6 Non-compliant behavior R46.89
[2023-05-31 17:23] LABS: Glucose Point of Care 114 mg/dL (70-110)
[2023-05-31 20:09] LABS: Glucose Point of Care 168 mg/dL (70-110)
[2023-05-31] MEDS: insulin lispro 100 unit/1 mL SUBCUT (20:26)
[2023-05-31] MEDS: pantoprazole 40 mg SDV IVP (20:26)
[2023-06-01] VITALS (10 sets, daily range): BP systolic 111–180; BP diastolic 60–97; PULSE 60–95; RESP 15–19; TEMP 36.4–37; O2SAT 92–99
[2023-06-01] MEDS: dextrose 5%-sod chloride 0.45% 1,000 ML 100 ML IV ×2 (03:28→14:49)
[2023-06-01 06:24] LABS: Glucose Point of Care 134 mg/dL (70-110)
[2023-06-01 08:54] LABS: Basophils % 0.4 %; Eosinophils % 0.5 %; Hematocrit 44.7 % (37-53); Lymphocytes # 1.1 10^3/uL (0.8-4.8); Lymphocytes % 19.6 %; Mean Corpuscular HGB Conc 33.8 g/dL (30-55); Mean Corpuscular Hemoglobin 31.5 pg (27-33); Mean Corpuscular Volume 93.1 fl (82-101); Mean Platelet Volume 12.6 fL (7.4-10.4); Monocytes # 0.3 10^3/uL (0.2-0.9); Monocytes % 4.9 %; Neutrophils % 74.2 %; Nucleated Red Blood Cells % 0 %; Platelet Count 96 10^3/cmm (157-399); Red Cell Distribution Width 14.1 % (12.1-15.1); White Blood Count 5.66 10^3/uL (3.29-11.43)
[2023-06-01 09:14] LABS: Alanine Aminotransferase 13 U/L (0-41); Albumin Level 4.5 g/dL (3.5-5.2); Alkaline Phosphatase 51 U/L (40-130); Anion Gap 15.8 (5-19); Aspartate Amino Transferase 39 U/L (0-40); Blood Urea Nitrogen 16 mg/dL (8-23); Calcium 9.3 mg/dL (8.5-10.5); Carbon Dioxide 23 mmol/L (22-29); Chloride 106 mmol/L (98-107); Globulin 2.7 g/dL (1.3-4.6); Glucose 178 mg/dL (65-115); Osmolality Calculated 300 mOsm/kg (285-295); Sodium 142 mmol/L (136-145); Total Bilirubin 1.6 mg/dL (0.15-1.2); Total Protein 7.2 g/dL (6.6-8.7)
[2023-06-01 09:20] LABS: Potassium 2.8 mmol/L (3.5-5.1)
[2023-06-01] MEDS: BuSPIRONE 10 mg Tablet 5 MG PO ×2 (09:27→17:39)
[2023-06-01] MEDS: heparin 5,000 unit/mL INJ 1 mL 5000 UNIT SUBCUT ×2 (09:28→21:36)
[2023-06-01] MEDS: levothyroxine 100 mcg SDV IVP (09:28)
[2023-06-01] MEDS: amlodipine 5 mg Tablet PO (09:28)
[2023-06-01] MEDS: potassium chloride ER 20 mEq Tablet 80 MEQ PO ×2 (09:41→14:48)
--- NOTE | 2023-06-01 09:42 | PC.NURSE ---
Notified Dr. Kay of Patients Potassium 2.8. Dr. Kay gave orders to give 80 mEq of Potassium oral.
[2023-06-01 11:52] LABS: Glucose Point of Care 126 mg/dL (70-110)
--- NOTE | 2023-06-01 13:28 | P.PN_ITS ---
Subjective 2 Subjective: No acute events overnight. Patient denies any nausea, vomiting, headache. Seen working with physical therapy. Remains on room air. Getting stronger. Blood work appreciated. Vitals/I&O/Wt Last Vital Signs Temp 97.8 F 06/01/23 12:00 Pulse 73 06/01/23 12:00 Resp 16 06/01/23 12:00 BP 111/79 06/01/23 08:00 Pulse Ox 99 06/01/23 11:35 O2 Del Method Room Air 06/01/23 11:35 05/31/23 06/01/23 06/01/23 22:59 06:59 14:59 Intake Total 1335 / 2575 1240 / 3815 360 / 360 Output Total 150 / 150 Balance 1335 / 2575 1240 / 3815 210 / 210 Weight last 48 hrs Weight 72.631 kg Weight 72.631 kg Weight 72.348 kg Weight 72.348 kg Weight 83.915 kg Physical Exam 2 Narrative: General: No acute distress, AO x3, dehydrated on room air HEENT: PERRLA, pupils bilaterally equal and reactive Chest: Normal vesicular breath sounds, no added sounds, equal good air entry bilaterally CVS: S1-S2 regular, no murmurs, no tachycardia, no gallops, no rubs Abdomen: Soft, nontender, no organomegaly, bowel sounds present Neuro: No focal deficits, no facial deformity, AO x3, power 3/5 in all limbs Data 06/01/23 08:37 06/01/23 08:37 A&P Assessment and plan (1) Dehydration: (2) Acute kidney injury: (3) Hypernatremia: (4) Hypothyroid: (5) Abnormal thyroid stimulating hormone (TSH) level: (6) Hypokalemia: (7) Non-compliant behavior: Plan 82-year-old male with past medical history as outlined above presented to the hospital today after a wellness check and found to have poor living conditions. Patient has a history of hypertension, hypothyroidism and pacemaker in place. Noncompliant to medications. Hypernatremia: Resolved. Continue with D5 NS at 75 cc/h. Monitor BMP daily for now. BEENA: Most likely in setting of dehydration. Creatinine trending down. Down to 1.4. Continue fluid as above. Medical reconstruction done for nephrotoxic drugs. No urine output documented. Patient using urinal as per the nursing staff. Monitor BMP daily. Hypokalemia: Potassium again 2.8 today. Replete with 80 mg oral. Will replete 40 mEq more. Repeat potassium in evening. Will recheck magnesium and phosphorus level. Hypothyroidism: Severely abnormal TSH level. Noncompliant to medication. Low free T3 and free T4 level. Cortisol levels normal. Continue with IV levothyroxine 100 mcg daily for now. Repeat thyroid panel every 48 hours. Discharge plan: Patient lives by himself. Found to be unsafe to live by himself as he was found in disheveled condition. Awake and alert. Agreeable to go to SNF for now. PT evaluation. Plan to discharge to SNF once possible. Type 2 diabetes mellitus: A1c 6.4. New diagnosis. Carb consistent diet for now with chest x-ray low-dose protocol. Most likely can be discharged on OHA like Januvia. CODE STATUS: Discussed in detail with the patient. Does not want any kind of resuscitation or life support. DNR/DNI. Carb consistent diet. Famotidine for PUD prophylaxis Heparin 5000 every 12 hourly for DVT prophylaxis. Attestations 2 Medical Necessity Statement*: Requires further hospitalization for management of resolving hyponatremia, BEENA with hypokalemia in setting of severe dehydration in a patient with severe hypothyroidism due to noncompliant behavior while safe discharge planning is sought. Diagnoses Dehydration E86.0 Acute kidney injury N17.9 Hypernatremia E87.0 Hypothyroid E03.9 Abnormal thyroid stimulating hormone (TSH) level R79.89 Hypokalemia E87.6 Non-compliant behavior R46.89
[2023-06-01 17:09] LABS: Glucose Point of Care 112 mg/dL (70-110)
[2023-06-01 18:22] LABS: Potassium 4.2 mmol/L (3.5-5.1)
[2023-06-01 20:38] LABS: Glucose Point of Care 126 mg/dL (70-110)
[2023-06-01] MEDS: pantoprazole 40 mg SDV IVP (22:16)
[2023-06-02] VITALS (13 sets, daily range): BP systolic 109–170; BP diastolic 60–88; PULSE 69–100; RESP 16–19; TEMP 36.3–37.3; O2SAT 90–95
[2023-06-02] MEDS: dextrose 5%-sod chloride 0.45% 1,000 ML 100 ML IV (00:54)
[2023-06-02 03:56] LABS: Basophils % 0.2 %; Hematocrit 41.8 % (37-53); Lymphocytes # 0.9 10^3/uL (0.8-4.8); Lymphocytes % 7.4 %; Mean Corpuscular HGB Conc 33.5 g/dL (30-55); Mean Corpuscular Hemoglobin 31.4 pg (27-33); Mean Corpuscular Volume 93.7 fl (82-101); Mean Platelet Volume 12.2 fL (7.4-10.4); Monocytes # 0.5 10^3/uL (0.2-0.9); Monocytes % 4.2 %; Neutrophils # 10.98 10^3/uL (1.8-7.7); Neutrophils % 87.7 %; Nucleated Red Blood Cells % 0 %; Platelet Count 84 10^3/cmm (157-399); Red Blood Count 4.46 10^6/uL (3.85-5.65); Red Cell Distribution Width 14.4 % (12.1-15.1); White Blood Count 12.52 10^3/uL (3.29-11.43)
[2023-06-02 04:15] LABS: Alanine Aminotransferase 10 U/L (0-41); Albumin Level 3.8 g/dL (3.5-5.2); Alkaline Phosphatase 39 U/L (40-130); Anion Gap 15.3 (5-19); Aspartate Amino Transferase 35 U/L (0-40); Blood Urea Nitrogen 13 mg/dL (8-23); Carbon Dioxide 25 mmol/L (22-29); Chloride 105 mmol/L (98-107); Globulin 2.5 g/dL (1.3-4.6); Glucose 152 mg/dL (65-115); Osmolality Calculated 295 mOsm/kg (285-295); Potassium 4.3 mmol/L (3.5-5.1); Sodium 141 mmol/L (136-145); Total Bilirubin 1.6 mg/dL (0.15-1.2); Total Protein 6.3 g/dL (6.6-8.7)
[2023-06-02 04:20] LABS: Free T4 Free Thyroxine 0.51 ng/dL (0.82-1.77)
[2023-06-02 06:43] LABS: Glucose Point of Care 152 mg/dL (70-110)
[2023-06-02] MEDS: heparin 5,000 unit/mL INJ 1 mL 5000 UNIT SUBCUT (08:35)
[2023-06-02] MEDS: amlodipine 5 mg Tablet PO (08:36)
[2023-06-02] MEDS: BuSPIRONE 10 mg Tablet 5 MG PO ×2 (08:37→18:01)
[2023-06-02] MEDS: insulin lispro 100 unit/1 mL SUBCUT (08:37)
[2023-06-02] MEDS: levothyroxine 100 mcg SDV IVP (08:38)
[2023-06-02 11:28] LABS: Glucose Point of Care 105 mg/dL (70-110)
--- NOTE | 2023-06-02 13:49 | P.PN_ITS ---
Subjective 2 Subjective: No acute events overnight. Today morning seen laying comfortably in bed, sleeping. Wakes up to verbal stimulus. Has remained hemodynamically stable and afebrile. Working with physical therapy. Vitals/I&O/Wt Last Vital Signs Temp 97.7 F 06/02/23 12:05 Pulse 69 06/02/23 12:05 Resp 18 06/02/23 12:05 BP 145/87 06/02/23 12:05 Pulse Ox 94 06/02/23 12:05 O2 Del Method Room Air 06/02/23 12:05 06/01/23 06/02/23 06/02/23 22:59 06:59 14:59 Intake Total 120 / 1480 1120 / 2600 960 / 960 Balance 120 / 1330 1120 / 2450 960 / 960 Weight last 48 hrs Weight 71.214 kg Weight 71.214 kg Weight 72.631 kg Physical Exam 2 Narrative: General: No acute distress, AO x3, dehydrated on room air HEENT: PERRLA, pupils bilaterally equal and reactive Chest: Normal vesicular breath sounds, no added sounds, equal good air entry bilaterally CVS: S1-S2 regular, no murmurs, no tachycardia, no gallops, no rubs Abdomen: Soft, nontender, no organomegaly, bowel sounds present Neuro: No focal deficits, no facial deformity, AO x3, power 3/5 in all limbs Data 06/02/23 03:20 06/02/23 03:20 A&P Assessment and plan (1) Dehydration: (2) Acute kidney injury: (3) Hypernatremia: (4) Hypothyroid: (5) Abnormal thyroid stimulating hormone (TSH) level: (6) Hypokalemia: (7) Non-compliant behavior: Plan 82-year-old male with past medical history as outlined above presented to the hospital today after a wellness check and found to have poor living conditions. Patient has a history of hypertension, hypothyroidism and pacemaker in place. Noncompliant to medications. Hypernatremia: Resolved. Continue with D5 NS at 75 cc/h. Monitor BMP daily for now. BEENA: Most likely in setting of dehydration. Creatinine trending down. Down to 1.4. Continue fluid as above. Medical reconstruction done for nephrotoxic drugs. No urine output documented. Patient using urinal as per the nursing staff. Monitor BMP daily. Hypokalemia: Potassium again 2.8 today. Replete with 80 mg oral. Will replete 40 mEq more. Repeat potassium in evening. Will recheck magnesium and phosphorus level. Hypothyroidism: Severely abnormal TSH level. Noncompliant to medication. Low free T3 and free T4 level. Cortisol levels normal. Continue with IV levothyroxine 100 mcg daily for now. Repeat thyroid panel every 48 hours. Discharge plan: Patient lives by himself. Found to be unsafe to live by himself as he was found in disheveled condition. Awake and alert. Agreeable to go to SNF for now. PT evaluation. Plan to discharge to SNF once possible. Type 2 diabetes mellitus: A1c 6.4. New diagnosis. Carb consistent diet for now with chest x-ray low-dose protocol. Most likely can be discharged on OHA like Januvia. CODE STATUS: Discussed in detail with the patient. Does not want any kind of resuscitation or life support. DNR/DNI. Carb consistent diet. Famotidine for PUD prophylaxis Heparin 5000 every 12 hourly for DVT prophylaxis. Plan for today: Dehydration and hyponatremia has resolved. Patient continues to have persistent BEENA with creatinine up to 1.6. No urine output documented. Will check urine lites, urine creatinine, repeat urinalysis. Check renal ultrasound. Continue with IV hydration at 75 cc for now. Appreciate thyroid panel. Light improvement. Continue with IV levothyroxine. Monitor thyroid panel every 48 hours. Patient does have mild leukocytosis today but no episodes of fever. Could be in setting of IV levothyroxine. For now we will hold off on starting IV antibiotics. Patient remains on room air. Attestations 2 Medical Necessity Statement*: Requires further hospitalization for management of acute kidney injury and hypernatremia in setting of dehydration, severe hypothyroidism in setting of noncompliance to medication while safe discharge planning is sought. Diagnoses Dehydration E86.0 Acute kidney injury N17.9 Hypernatremia E87.0 Hypothyroid E03.9 Abnormal thyroid stimulating hormone (TSH) level R79.89 Hypokalemia E87.6 Non-compliant behavior R46.89
--- NOTE | 2023-06-02 13:53 | USR_ITS ---
PROCEDURE INFORMATION: Exam: US Retroperitoneal; Complete; Kidneys and Bladder Exam date and time: 06/02/2023 2:58 PM Age: 82 years old Clinical indication: Condition or disease; Kidney or ureter condition; Other: Deepak; Additional info: Deepak, rule out hydronephrosis TECHNIQUE: Imaging protocol: Real-time ultrasound of the retroperitoneum with image documentation. Complete exam focused on the kidneys and bladder. COMPARISON: CT abdomen pelvis w con* [id number] 11/03/2021 1:13 PM FINDINGS: Right kidney: No stones. No hydronephrosis. Left kidney: No stones. No hydronephrosis. Urinary bladder: No acute findings. US/US renal BI* [id number] IMPRESSION: No hydronephrosis.
--- NOTE | 2023-06-02 14:08 | PC.NURSE ---
Patient walks with walker and one assist to the bathroom. Patient has had a couple of urinary incontinent episodes. Patient will put call light on when needs to void.
[2023-06-02] MEDS: dextrose 5%-sod chloride 0.9% 1,000 ML 75 ML IV (15:22)
[2023-06-02 16:21] LABS: Glucose Point of Care 98 mg/dL (70-110)
[2023-06-02 17:13] LABS: Add Urine Microscopic? NO; Charge for UA Resulting for Rev
[2023-06-02 17:25] LABS: Bilirubin Urine Neg (Negative); Blood Urine Neg (Negative); Glucose Urine UA Norm (Normal); Ketones Urine Negative (Negative); Leukocyte Esterase Urine Negative (Negative); Nitrate Urine Negative (Negative); Protein Urine Neg (Negative); Urine Appearance Clear (CLEAR); Urine Color Straw (Yellow); Urobilinogen Urine Norm (Negative); pH Urine 5 (5-7)
[2023-06-02 17:37] LABS: Potassium, Radom Urine 51 mmol/L; Urine Creatinine 89 mg/dL (39-259); Urine Random Chloride 145 mmol/L; Urine Random Sodium 113 mmol/L
[2023-06-02 17:52] LABS: Eosinophil Urine No Eosinophils Seen; Urine Eosinophil Count 0 (0-0)
[2023-06-02 21:39] LABS: Glucose Point of Care 116 mg/dL (70-110)
[2023-06-02] MEDS: pantoprazole 40 mg SDV IVP (23:14)
[2023-06-03] VITALS (12 sets, daily range): BP systolic 100–119; BP diastolic 54–73; PULSE 54–95; RESP 17–19; TEMP 36.4–37.2; O2SAT 90–97; BMI 26.5
[2023-06-03] MEDS: heparin 5,000 unit/mL INJ 1 mL 5000 UNIT SUBCUT ×3 (00:38→20:53)
[2023-06-03 03:57] LABS: Basophils % 0.3 %; Eosinophils % 0.1 %; Hematocrit 41.2 % (37-53); Lymphocytes # 0.8 10^3/uL (0.8-4.8); Mean Corpuscular HGB Conc 33.3 g/dL (30-55); Mean Corpuscular Hemoglobin 31.4 pg (27-33); Mean Corpuscular Volume 94.3 fl (82-101); Mean Platelet Volume 12.6 fL (7.4-10.4); Monocytes # 0.3 10^3/uL (0.2-0.9); Neutrophils # 6.16 10^3/uL (1.8-7.7); Neutrophils % 84.5 %; Nucleated Red Blood Cells % 0 %; Platelet Count 64 10^3/cmm (157-399); Red Blood Count 4.37 10^6/uL (3.85-5.65); Red Cell Distribution Width 14.6 % (12.1-15.1); White Blood Count 7.29 10^3/uL (3.29-11.43)
[2023-06-03 04:30] LABS: Alanine Aminotransferase 11 U/L (0-41); Albumin Level 3.5 g/dL (3.5-5.2); Alkaline Phosphatase 44 U/L (40-130); Anion Gap 15.7 (5-19); Aspartate Amino Transferase 31 U/L (0-40); Blood Urea Nitrogen 10 mg/dL (8-23); Calcium 8.7 mg/dL (8.5-10.5); Carbon Dioxide 22 mmol/L (22-29); Chloride 109 mmol/L (98-107); Creatinine Clr Calc Pharmacy 37.1792; Globulin 2.7 g/dL (1.3-4.6); Glucose 136 mg/dL (65-115); Osmolality Calculated 297 mOsm/kg (285-295); Potassium 3.7 mmol/L (3.5-5.1); Sodium 143 mmol/L (136-145); Total Protein 6.2 g/dL (6.6-8.7)
[2023-06-03 07:07] LABS: Glucose Point of Care 107 mg/dL (70-110)
[2023-06-03] MEDS: BuSPIRONE 10 mg Tablet 5 MG PO ×2 (09:06→17:49)
[2023-06-03] MEDS: amlodipine 5 mg Tablet PO (09:06)
[2023-06-03] MEDS: tamsulosin 0.4 mg Capsule PO (09:06)
[2023-06-03] MEDS: levothyroxine 100 mcg SDV IVP (09:07)
--- NOTE | 2023-06-03 10:52 | PC.SOCIAL ---
IMM Update Pg. 2 of IMM updated. Copy provided. Copy placed in chart.
[2023-06-03 11:35] LABS: Glucose Point of Care 107 mg/dL (70-110)
--- NOTE | 2023-06-03 12:57 | P.PN_ITS ---
Subjective 2 Subjective: Seen this morning. Laying in bed appearing comfortable at this time. Does not present any complaints. Right eye however stuck shut with purulent drainage. Left eye appears better but similar. He says the eyes are not bothering him at this time. Vitals/I&O/Wt Last Vital Signs Temp 98.2 F 06/03/23 12:01 Pulse 86 06/03/23 12:01 Resp 18 06/03/23 12:01 BP 112/73 06/03/23 12:01 Pulse Ox 93 06/03/23 12:01 O2 Del Method Room Air 06/03/23 12:01 06/02/23 06/03/23 06/03/23 22:59 06:59 14:59 Intake Total 240 / 1200 0 / 1200 1240 / 1240 Output Total 650 / 650 300 / 300 Balance -410 / 550 0 / 550 940 / 940 Weight last 48 hrs Weight 72.257 kg Weight 72.121 kg Weight 71.214 kg Physical Exam 2 Narrative: General: No acute distress, AO x3, on room air. HEENT: PERRLA, pupils bilaterally equal and reactive, purulent drainage noted at eyelids bilaterally with right eye stuck shut. Chest: Clear to auscultation bilaterally CVS: S1-S2 regular, no gross murmurs. Abdomen: Soft, nontender, no organomegaly, bowel sounds present Neuro: No focal deficits, no facial deformity, AO x3, Urinary Catheter Management: Torres: Cath Placed During This Visit: yes Reason for Continuing Indwelling Catheter: Acute Urinary Retention or Obstruction Urinary Catheter Date of Insertion: 06/02/23 Urinary Catheter Time of Insertion: 17:45 Data 06/03/23 03:07 06/03/23 03:07 A&P Assessment and plan (1) Dehydration: (2) Acute kidney injury: (3) Hypernatremia: (4) Hypothyroid: (5) Abnormal thyroid stimulating hormone (TSH) level: (6) Hypokalemia: (7) Non-compliant behavior: Plan 82-year-old male with past medical history as outlined above presented to the hospital today after a wellness check and found to have poor living conditions. Patient has a history of hypertension, hypothyroidism and pacemaker in place. Noncompliant to medications. Hypernatremia: Resolved. Continue with D5 NS at 75 cc/h for another 24 hours. Stop fluids tomorrow. Monitor BMP daily for now. BEENA: Most likely in setting of dehydration. Creatinine trending down. Down to 1.4. Continue fluid as above. Medical reconstruction done for nephrotoxic drugs. No urine output documented. Patient using urinal as per the nursing staff. Monitor BMP daily. Hypokalemia: Resolved. Potassium 3.7 today. Hypothyroidism: Severely abnormal TSH level. Noncompliant to medication. Low free T3 and free T4 level. Cortisol levels normal. Continue with IV levothyroxine 100 mcg daily for now. Repeat thyroid panel every 48 hours. Most likely can switch to oral starting tomorrow. Discharge plan: Patient lives by himself. Found to be unsafe to live by himself as he was found in disheveled condition. Awake and alert. Agreeable to go to SNF for now. PT evaluation. Plan to discharge to SNF once possible. Type 2 diabetes mellitus: A1c 6.4. New diagnosis. Carb consistent diet for now with chest x-ray low-dose protocol. Most likely can be discharged on OHA like Januvia. CODE STATUS: Discussed in detail with the patient. Does not want any kind of resuscitation or life support. DNR/DNI. Carb consistent diet. Famotidine for PUD prophylaxis Heparin 5000 every 12 hourly for DVT prophylaxis. Plan for today: Dehydration and hyponatremia has resolved. Creatinine improved to 1.4 today. Patient was having urinary retention. Torres catheter is placed. 950 cc overnight. Renal ultrasound does not show any hydronephrosis. Continue IV hydration at 75 cc. Appreciate thyroid panel. Light improvement. Continue with IV levothyroxine. Switch to oral levothyroxine starting tomorrow. Monitor thyroid panel every 48 hours. Patient does have mild leukocytosis today but no episodes of fever. WBC count normal. Attestations 2 Medical Necessity Statement*: Requires further hospitalization for management of acute kidney injury and hypernatremia in setting of dehydration, severe hypothyroidism in setting of noncompliance to medication while safe discharge planning is sought. Diagnoses Dehydration E86.0 Acute kidney injury N17.9 Hypernatremia E87.0 Hypothyroid E03.9 Abnormal thyroid stimulating hormone (TSH) level R79.89 Hypokalemia E87.6 Non-compliant behavior R46.89
[2023-06-03 16:20] LABS: Glucose Point of Care 129 mg/dL (70-110)
[2023-06-03 21:49] LABS: Glucose Point of Care 134 mg/dL (70-110)
[2023-06-03] MEDS: pantoprazole 40 mg SDV IVP (22:31)
[2023-06-04] VITALS: BP 124/76; PULSE 69; RESP 18; TEMP 36.4; O2SAT 97
[2023-06-04 04:00] VITALS: BP 127/66; PULSE 76; RESP 17; TEMP 36.3; O2SAT 93
[2023-06-04 05:36] VITALS: PULSE 84
[2023-06-04 05:40] LABS: Basophils % 0.3 %; Eosinophils # 0.1 10^3/uL (0.0-0.8); Eosinophils % 1.2 %; Hematocrit 36.8 % (37-53); Lymphocytes # 0.9 10^3/uL (0.8-4.8); Lymphocytes % 15.5 %; Mean Corpuscular HGB Conc 33.2 g/dL (30-55); Mean Corpuscular Hemoglobin 31.6 pg (27-33); Mean Corpuscular Volume 95.3 fl (82-101); Mean Platelet Volume 12.3 fL (7.4-10.4); Monocytes # 0.2 10^3/uL (0.2-0.9); Monocytes % 3.5 %; Neutrophils # 4.56 10^3/uL (1.8-7.7); Neutrophils % 79.2 %; Nucleated Red Blood Cells % 0 %; Platelet Count 72 10^3/cmm (157-399); Red Blood Count 3.86 10^6/uL (3.85-5.65); Red Cell Distribution Width 15.2 % (12.1-15.1); White Blood Count 5.76 10^3/uL (3.29-11.43)
[2023-06-04 05:58] LABS: Anion Gap 12.8 (5-19); Blood Urea Nitrogen 12 mg/dL (8-23); Calcium 9.1 mg/dL (8.5-10.5); Carbon Dioxide 26 mmol/L (22-29); Chloride 109 mmol/L (98-107); Glucose 101 mg/dL (65-115); Magnesium 1.7 mg/dL (1.7-2.3); Osmolality Calculated 298 mOsm/kg (285-295); Phosphorus 2.5 mg/dL (2.5-4.5); Potassium 3.8 mmol/L (3.5-5.1); Sodium 144 mmol/L (136-145)
[2023-06-04 06:00] VITALS: BMI 26.5
[2023-06-04 08:00] VITALS: BP 123/76; PULSE 85; RESP 18; TEMP 36.8; O2SAT 94
[2023-06-04 08:22] LABS: Glucose Point of Care 205 mg/dL (70-110)
[2023-06-04] MEDS: levothyroxine 100 mcg SDV IVP (08:56)
[2023-06-04] MEDS: insulin lispro 100 unit/1 mL SUBCUT (08:56)
[2023-06-04] MEDS: heparin 5,000 unit/mL INJ 1 mL 5000 UNIT SUBCUT (08:56)
[2023-06-04] MEDS: tamsulosin 0.4 mg Capsule PO (08:56)
[2023-06-04] MEDS: BuSPIRONE 10 mg Tablet 5 MG PO (08:57)
[2023-06-04] MEDS: amlodipine 5 mg Tablet PO (08:57)
[2023-06-04 10:59] LABS: Glucose Point of Care 99 mg/dL (70-110)
[2023-06-04 12:00] VITALS: BP 130/80; PULSE 80; RESP 20; TEMP 36.9; O2SAT 94
--- NOTE | 2023-06-04 12:56 | P.DS_ITS ---
Discharge Providers Date of Admission: 05/30/23 19:44 Date of Discharge: June 04, 2023 Attending Provider at Admission: Bharat Kay MD Attending Provider at Discharge: Ellie Gilbert MD Primary Care Provider: Felicia Peters Diagnoses at Discharge Discharge Diagnosis (1) Dehydration: Status: Acute (2) Acute kidney injury: Status: Acute (3) Hypernatremia: Status: Acute (4) Hypothyroid: Status: Acute (5) Abnormal thyroid stimulating hormone (TSH) level: Status: Acute (6) Hypokalemia: Status: Acute (7) Non-compliant behavior: Status: Acute Reason for Visit Reason for Visit: unable to care for self Brief History: Randell Paul is a 82 year old male with past medical history of malignant melanoma for which he was on treatment with nivolumab until 02/2023, h/o BPH, s/p PPM, hypertension and hypothyroidism who was brought into the emergency room today after neighbors called for a welfare check. Patient usually lives with his sister and was her primary caregiver until about 2 weeks ago when his sister . He states that the house in which they were living has now been put up for sale by the personal care home administrator. He states he has not been eating or drinking well over the past few days and feels overall fatigued and unwell. He was found to be dehydrated with poor living conditions and was therefore brought to the emergency room. He denies any specific complaints of URI type symptoms, cough dyspnea chest pain palpitations or syncope. Denies any abdominal pain nausea or vomiting. He has no specific complaints at this time except for generalized fatigue. Hospital Course Hospital Course Patient admitted for poor living conditions after being found at home during a welfare check. Previously he lived with his sister who was primary caregiver until about 2 weeks ago when sister . On presentation he had hyponatremia, BEENA, hypokalemia, severe hypothyroidism that was being treated with IV levothyroxine during hospital stay. Dehydration and hyper natremia have resolved. BEENA was persistent and he was diagnosed with urinary retention. Torres catheter was placed which improved kidney function. Renal ultrasound did not show any gross hydronephrosis. Patient is DNR/DNI. A1c 6.4. This is a new diagnosis for him. He will be discharged on antihyperglycemic agents. Patient has been noncompliant with medications at home. He was also severely hypokalemic which was treated. At this point patient will be sent to nursing facility in stable condition. He will require TSH check every 4 to 6 weeks. Will refer to endocrinology as an outpatient. For now I will start his oral levothyroxine at 1.6 mcg/kg as initial dosing. This may be adjusted every 4 to 6 weeks depending on TSH level. Will also order erythromycin ointment for conjunctivitis. Physical Exam Narrative: General: No acute distress, AO x3, on room air. HEENT: pupils bilaterally equal and reactive, purulent drainage noted at eyelids bilaterally with right eye stuck shut. Chest: Clear to auscultation bilaterally CVS: S1-S2 regular, no gross murmurs. Abdomen: Soft, nontender, no organomegaly, bowel sounds present Neuro: No focal deficits, no facial deformity, AO x3, Urinary Catheter Management: Torres: Cath Placed During This Visit: yes Reason for Continuing Indwelling Catheter: Acute Urinary Retention or Obstruction Urinary Catheter Date of Insertion: 06/02/23 Urinary Catheter Time of Insertion: 17:45 Discharge Data Studies Completed and Pending Completed Studies During Hospitalization Category Date Time Status XR chest 1V portable [id number] Stat Exams 05/30/23 17:23 Completed US renal BI* [id number] Routine Ultrasound 06/02/23 13:53 Completed Radiology Impressions Chest X-Ray 05/30/23 17:23 IMPRESSION: No acute findings. Renal Ultrasound 06/02/23 13:53 IMPRESSION: No hydronephrosis. Laboratory Results WBC 5.76 10^3/uL (3.29-11.43) 06/04/23 05:26 RBC 3.86 10^6/uL (3.85-5.65) 06/04/23 05:26 Hgb 12.20 g/dL (11.27-16.99) 06/04/23 05:26 Hct 36.8 % (37-53) L 06/04/23 05:26 MCV 95.3 fl (82-101) 06/04/23 05:26 MCH 31.6 pg (27-33) 06/04/23 05:26 MCHC 33.2 g/dL (30-55) 06/04/23 05:26 RDW 15.2 % (12.1-15.1) H 06/04/23 05:26 Plt Count 72 10^3/cmm (157-399) L 06/04/23 05:26 MPV 12.3 fL (7.4-10.4) H 06/04/23 05:26 Neut % (Auto) 79.2 % 06/04/23 05:26 Lymph % (Auto) 15.5 % 06/04/23 05:26 Stevens % (Auto) 3.5 % 06/04/23 05:26 Eos % (Auto) 1.2 % 06/04/23 05:26 Baso % (Auto) 0.3 % 06/04/23 05:26 Neut # (Auto) 4.56 10^3/uL (1.8-7.7) 06/04/23 05:26 Lymph # (Auto) 0.9 10^3/uL (0.8-4.8) 06/04/23 05:26 Stevens # (Auto) 0.2 10^3/uL (0.2-0.9) 06/04/23 05:26 Eos # (Auto) 0.1 10^3/uL (0.0-0.8) 06/04/23 05:26 Baso # (Auto) 0.0 10^3/uL (0.0-0.1) 06/04/23 05:26 Nucleated RBC % (auto) 0 % 06/04/23 05:26 Nucleated RBCs # 0.0 /100WBC 06/04/23 05:26 PT 15.50 SECONDS (12.1-14.9) H 05/30/23 17:35 INR 1.19 (0.8-1.2) 05/30/23 17:35 Sodium 144 mmol/L (136-145) 06/04/23 05:26 Potassium 3.8 mmol/L (3.5-5.1) 06/04/23 05:26 Chloride 109 mmol/L (98-107) H 06/04/23 05:26 Carbon Dioxide 26 mmol/L (22-29) 06/04/23 05:26 Anion Gap 12.8 (5-19) 06/04/23 05:26 BUN 12 mg/dL (8-23) 06/04/23 05:26 Creatinine 1.3 mg/dL (0.7-1.2) H 06/04/23 05:26 GFR Calculation Not Reportable 06/04/23 05:26 Glucose 101 mg/dL (65-115) 06/04/23 05:26 POC Glucose 99 mg/dL (70-110) 06/04/23 10:36 Estimat Average Glucose 137 05/31/23 04:45 Hemoglobin A1c 6.4 % (4.0-6.0) H 05/31/23 04:45 Calculated Osmolality 298 mOsm/kg (285-295) H 06/04/23 05:26 Calcium 9.1 mg/dL (8.5-10.5) 06/04/23 05:26 Phosphorus 2.5 mg/dL (2.5-4.5) 06/04/23 05:26 Magnesium 1.7 mg/dL (1.7-2.3) 06/04/23 05:26 Iron 96 ug/dL (59-158) 05/30/23 17:35 TIBC 279 mcg/dl 05/30/23 17:35 % Saturation 34.4 % (20-50) 05/30/23 17:35 Unsat Iron Binding 183 ug/dL (112-347) 05/30/23 17:35 Total Bilirubin 2.0 mg/dL (0.15-1.2) H 06/03/23 03:07 AST 31 U/L (0-40) 06/03/23 03:07 ALT 11 U/L (0-41) 06/03/23 03:07 Alkaline Phosphatase 44 U/L (40-130) 06/03/23 03:07 Creatine Kinase 199 U/L (39-308) 05/30/23 17:35 Total Protein 6.2 g/dL (6.6-8.7) L 06/03/23 03:07 Albumin 3.5 g/dL (3.5-5.2) 06/03/23 03:07 Globulin 2.7 g/dL (1.3-4.6) 06/03/23 03:07 Triglycerides 111 mg/dL (0-150) 05/31/23 04:45 Cholesterol 158 mg/dL (0-200) 05/31/23 04:45 LDL Cholesterol, Calc 90 mg/dL (50-129) 05/31/23 04:45 HDL Cholesterol 46 mg/dL (60-100) L 05/31/23 04:45 LDL/HDL Ratio 1.96 RATIO (0.00-3.22) 05/31/23 04:45 Cholesterol/HDL Ratio 3.43 mg/dL (1.0-5.00) 05/31/23 04:45 Vitamin B12 1416 pg/mL (232-1245) H 05/30/23 17:35 Folate 19.1 ng/mL (4.5-32.2) 05/31/23 04:45 Procalcitonin 0.11 ng/mL (0-0.5) 05/30/23 17:35 TSH 45.10 uIU/mL (0.27-4.20) H 06/02/23 03:20 Free T4 0.51 ng/dL (0.82-1.77) L 06/02/23 03:20 Free T3 0.4 PG/ML (2.0-4.4) L 05/31/23 04:45 Random Cortisol 15.01 ug/dL (2.47-19.5) 05/31/23 04:45 Urine Color Straw (Yellow) 06/02/23 16:33 Urine Appearance Clear (CLEAR) 06/02/23 16:33 Urine pH 5 (5-7) 06/02/23 16:33 Ur Specific [place] 1.010 (1.005-1.030) 06/02/23 16:33 Urine Protein Neg (Negative) 06/02/23 16:33 Urine Glucose (UA) Norm (Normal) 06/02/23 16:33 Urine Ketones Negative (Negative) 06/02/23 16:33 Urine Blood Neg (Negative) 06/02/23 16:33 Urine Nitrate Negative (Negative) 06/02/23 16:33 Urine Bilirubin Neg (Negative) 06/02/23 16:33 Urine Urobilinogen Norm mg/dL (Negative) 06/02/23 16:33 Ur Leukocyte Esterase Negative (Negative) 06/02/23 16:33 Urine RBC 0-4 /hpf (0-2) H 05/30/23 18:49 Urine WBC 0-4 /hpf (0-5) H 05/30/23 18:49 Ur Eosinophil Smear 0 (0-0) 06/02/23 16:33 Ur Squamous Epith Cells None /hpf (0-5) 05/30/23 18:49 Ur Renal Epithelial Cell 0-4 /hpf 05/30/23 18:49 Amorphous Sediment Not Reportable 05/30/23 18:49 Urine Bacteria Trace /hpf (NONE) 05/30/23 18:49 Urine Mucus 1+ /hpf 05/30/23 18:49 Urine Eosinophils No eosinophils seen 06/02/23 16:33 Ur Random Sodium 113 mmol/L 06/02/23 16:33 Ur Random Potassium 51 mmol/L 06/02/23 16:33 Ur Random Chloride 145 mmol/L 06/02/23 16:33 Urine Creatinine 89 mg/dL (39-259) 06/02/23 16:33 SARS-CoV-2 Ag (Rapid) negative (Negative) 05/31/23 06:12 Vitals Last Vital Signs Temp 98.5 F 06/04/23 12:00 Pulse 80 06/04/23 12:00 Resp 20 H 06/04/23 12:00 BP 130/80 06/04/23 12:00 Pulse Ox 94 06/04/23 12:00 O2 Del Method Room Air 06/04/23 04:00 O2 Flow Rate 1 06/03/23 20:00 Discharge Plan Discharge Patient Disposition: Home Condition: Stable Prescriptions: New amlodipine 5 mg Tablet 5 mg PO DAILY Qty: 30 0RF tamsulosin 0.4 mg Capsule 0.4 mg PO DAILY Qty: 30 0RF buspirone 10 mg Tablet 5 mg PO BID Qty: 60 0RF levothyroxine 112 mcg Tablet 112 mcg PO QAM Qty: 30 0RF erythromycin 5 mg/gram (0.5 %) ointment 1 applic ophthalmic (eye) BID 5 Days Qty: 3.5 0RF Januvia 25 mg tablet 25 mg PO DAILY Qty: 30 0RF Discharge Orders: Discharge Order (Routine); Ordered 06/04/23 Ordered By: Ellie Gilbert Other Ambulatory Orders: TSH Receptor Binding Antibody (Routine) Timeframe: 4 Weeks Facility: [facility] - Location: Lab - Main Lab Ordered By: Ellie Gilbert Referrals: Mason Echeverria MD [Physician] - 1 week Felicia Peters FNP [Primary Care Provider] - Discharge Diet: Cardiac and Diabetic Discharge Activity: As per PT/OT instructions Patient Instructions: Opioid Safety Discharge Attestations Time Spent in Discharge Care*: greater than 30 min Quality Metrics Clinical Quality Measures [ No reported AMI, CVA or VTE this stay] Coding Level of Care Code 19701 Total time (in minutes) for Discharge: 45 Diagnoses Dehydration E86.0 Acute kidney injury N17.9 Hypernatremia E87.0 Hypothyroid E03.9 Abnormal thyroid stimulating hormone (TSH) level R79.89 Hypokalemia E87.6 Non-compliant behavior R46.89
[2023-06-04 15:30] VITALS: BP 130/80; PULSE 80; RESP 18; TEMP 36.9; O2SAT 94
--- NOTE | 2023-06-04 15:30 | NUR.SHIFT ---
Report called to Gloria Diop at [facility] at this time.
== END 2023-06-04 15:30 | disposition skilled nursing facility (03) | DRG 683 ==
LOC: ER 18:25 → MEDSURG 19:45
PROVIDERS: Student in an Organized Health Care Education/Training Program; Admitting Provider Student in an Organized Health Care Education/Training Program; Emergency Provider Emergency Medicine; PCP Nurse Practitioner Family; Visit Provider Internal Medicine
DX: N17.9 Acute kidney failure, unspecified (principal); E87.0 Hyperosmolality and hypernatremia; E86.0 Dehydration; N40.0 Benign prostatic hyperplasia without lower urinary tract symptoms; I10 Essential (primary) hypertension; E03.9 Hypothyroidism, unspecified; E87.6 Hypokalemia; E11.9 Type 2 diabetes mellitus without complications; R33.9 Retention of urine, unspecified; Z66 Do not resuscitate; H10.9 Unspecified conjunctivitis; Z11.52 Encounter for screening for COVID-19; Z59.11 Inadequate housing environmental temperature; Z85.820 Personal history of malignant melanoma of skin; Z92.25 Personal history of immunosuppression therapy; Z91.199 Patient's noncompliance with other medical treatment and regimen due to unspecified reason; Z95.0 Presence of cardiac pacemaker
CPT/HCPCS: 36415; 36416; 36591; 51702; 51798; 71045; 76770; 80048; 80053; 80061; 81001; 81003; 82436; 82533; 82550; 82570; 82607; 82746; 82962; 83036; 83540; 83550; 83735; 84100; 84132; 84133; 84145; 84300; 84439; 84443; 84481; 85025; 85610; 85999; 87426; 93005; 94664; 96360; 96372; 97110; 97116; 97161; 97530; 99285; C9113; J1644; J1815; J3490; J7030; J7042; J7799